=== PATIENT | female | born 1940 | race Caucasian/White ===

== ENCOUNTER 2016-10-23 11:55 | Inpatient (IN) | payer OTHER ==
[2016-10-29] MEDS ORDERED: BISACODYL 10 MG SUPP PR PRN (15:31)
--- NOTE | 2016-10-29 16:41 | PDOREHIP ---
Admission [facility] - Admission - 3 Day Assessment Period Admission Date/Day 1: 10/29/16 Day 2: 10/30/16 Day 3: 10/31/16 - Active Diagnoses Comorbidities and Co-existing Conditions at Admission: 74610. None of the Above - Skin Conditions Unhealed Pressure Ulcer (1 or more/Stage 1 or >)-Admission: 0. No
[2016-10-29] MEDS: WARFARIN SODIUM 5 MG TAB PO SCH (17:32)
[2016-10-29] MEDS: MIDODRINE HCL 5 MG TAB PO SCH ×2 (17:32→20:49)
--- NOTE | 2016-10-29 17:44 | GHP ---
[f rep st] HISTORY AND PHYSICAL POST ADMISSION PHYSICIAN EVALUATION AND REHABILITATION TREATMENT PLAN DATE OF ADMISSION: 10/29/2016 DATE OF EVALUATION: 10/29/2016 TIME OF EVALUATION: 1340 REFERRING FACILITY: [facility]. IMPAIRMENT GROUP: 14.1. DATE OF ONSET: 10/16/2014. REFERRING PHYSICIAN: Dr. Yen. CONSULTING PHYSICIAN: Dr. Humphrey with neurosurgery. REHABILITATION DIAGNOSIS: Partial paraplegia at C6, status post lumbar decompression and fusion surgery. 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 DATE OF SURGERY: 10/16/2014 HISTORY OF PRESENT ILLNESS: The patient had a fall at home and lost strength to her arms and legs. She was taken initially to [facility] and subsequently transferred to [facility], where she was found to have a cervical spine injury with myelopathy and quadriparesis. Spinal MRI on showed severe cord compression C5-C6 due to a disc bulge and ligamentum flavum infolding, as well as spinal cord edema and swelling from C3- C7. She also had moderate spinal stenosis at C6-C7. She underwent surgery on 10/16/2014 with a C5-C6 laminectomy and a C5-7 posterior fusion. Her hospital course was complicated by delirium for which she was treated with Zyprexa briefly and by hypotension. She was initially treated with a phenylephrine infusion to maintain mean arterial pressure greater than 90. She had some improvement in her strength, particularly in the upper extremities. It took some time for her to be converted to oral pressors and off of the phenylephrine infusion. Finally this was accomplished with midodrine, fludrocortisone and droxidopa. Additionally, she was treated with an abdominal binder and compression stockings. A Calero catheter was inserted for immobility and urinary incontinence. She had constipation and likely neurogenic bowel and was treated with laxatives which have resulted in soft stool and fecal incontinence. Other imaging in the hospital: A head CT was done without intracranial abnormality other than mild diffuse cerebral volume loss and mild periventricular and subcortical white matter hypodensities consistent with small vessel ischemic disease. MRI of the thoracic spine showed a chronic L1 superior endplate compression fracture and anterior wedge deformity with 30% loss of anterior vertebral body height. MRI of the lumbar spine showed multilevel degenerative disc disease and facet arthropathy greatest at L4-L5 with severe spinal canal stenosis, as well as moderate spinal canal stenosis at L3-L4 and a chronic anterior wedge compression deformity of L1. She had grade 1 anterolisthesis of L4 on L5 without spondylolysis. She has history of paroxysmal atrial fibrillation for which she was on warfarin. Warfarin was restarted on 10/23/2016. She was stabilized and ready for discharge to inpatient rehabilitation. LABORATORY STUDIES: On the day of discharge, her INR was 1.95 and her hemoglobin and hematocrit were 11 and 36. On 10/27/2014, a basic metabolic panel was entirely within normal limits and the CBC showed slight anemia with a hemoglobin 11.1 and hematocrit of 34.8, platelet count was normal at 4.39. White blood cell count was normal at 6.71. Comprehensive metabolic panel on and 10/19 showed a slightly low albumin at 2.4 and then 2.2. Otherwise, liver functions were within normal limits. She had normal magnesium and phosphorus on 10/27/2016. INR on 10/26 was 1.11, on 10/27 was 1.31, on 10/28 was 1.6. PRECAUTIONS: She is a fall risk. She has orthopedic precautions at the cervical spine. ACTIVE COMORBIDITIES: She has the tier 3 comorbidity of partial C6 paraplegia. PAST MEDICAL HISTORY: 1. Pulmonary emboli which happened in conjunction with a pacemaker placement. 2. Complete AV block. 3. Anxiety and depression. 4. Syncope. 5. Paroxysmal atrial fibrillation. 6. Chronic hypoxemic respiratory failure, using 1.5 L of oxygen overnight. 7. Osteoporosis. 8. Sinus infections. 9. Generalized anxiety disorder and major depression. 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 11. Osteoarthritis. 12. Tricuspid regurgitation. 13. Diastolic dysfunction. 14. Diverticulosis. PAST SURGICAL HISTORY: She had a pacemaker placement on 04/26/2016. PREHOSPITAL MEDICATIONS: I do not have a list. ADMISSION MEDICATIONS: 1. Acetaminophen 650 mg p.o. q.6 hours p.r.n. 2. Cholecalciferol 1000 units p.o. daily. 3. Fludrocortisone 0.1 mg p.o. daily. 4. Fluoxetine 20 mg p.o. daily. 5. Gabapentin 400 mg p.o. q.8 hours. 6. Midodrine 5 mg p.o. three times daily. 7. Lactobacillus supplement three times daily with meals. 8. Vitamin B complex 1000 mcg p.o. daily. 9. Warfarin 5 mg p.o. on Wednesday, Wednesday, and Wednesday and 2.5 mg p.o. on Wednesday, Wednesday, and Wednesday. 10. Droxidopa 300 mg po three times daily ALLERGIES: Listed to amoxicillin and to carrots. FAMILY HISTORY: Noncontributory. PSYCHOSOCIAL HISTORY: She is . She lives with her . She has a history of smoking but she quit at age 32. REVIEW OF SYSTEMS: She reports a return of sensation in her arms and legs, and some movement beginning in the legs. She has good movement at the elbows and shoulders but difficulty with movement at the wrists and fingers. She has had fecal incontinence. She reports that she has sensation: she knows when she is incontinent of feces and she has a feeling of full bladder even though there is a Calero catheter in place. She denies cough or dyspnea. She denies chest pain or palpitations. She denies fevers or chills. She denies abdominal pain. She denies difficulty swallowing. She denies joint pain or joint swelling. She denies skin rash or skin breakdown. She denies recent weight gain or weight loss prior to her accident. Otherwise a 10-point review of systems is negative. PHYSICAL EXAMINATION: VITAL SIGNS: Blood pressure is 162/108. Heart rate is 84, respiratory rate is 17 oxygen saturation is 96% on room air. Temperature is 36.5 degrees centigrade. Her weight is 64.5 kg. Her body mass index of 26.7. GENERAL: This is an overweight woman lying in bed, wearing a cervical collar, alert, cooperative and in no acute distress. HEENT: Extraocular movements are intact. Pupils are equal, round, and reactive to light. Mucous membranes are moist. Dentition is in good condition. There is no posterior oropharyngeal mucus. NECK: Supple. There is a well-approximated surgical scar on the posterior neck with minimal eschar along the incision. No dehiscence and no drainage. There are no sutures or jeison visible. HEART: There is a regular rate and rhythm with no murmurs, rubs, or gallops. LUNGS: Clear to auscultation bilaterally. ABDOMEN: Soft, nontender, nondistended with normoactive bowel sounds and no hepatosplenomegaly. EXTREMITIES: There is no cyanosis, clubbing, or edema. Radial pulses are 2+ bilaterally. Dorsalis pedis pulses are 1+ bilaterally. NEUROLOGIC: She is alert and oriented x3. Cranial nerves 2-12 are grossly intact. Motor strength is 3 to 4 over 5 bilaterally at the shoulders and elbows, and she lacks antigravity movement at the wrists or fingers. She also lacks volitional hand sponsorship coordinator. In the lower extremities, she has movement at the hip flexors, and internal and external rotation of the hips. On the left side, she has 1/5 strength at the quadriceps, 0/5 strength at the hamstrings, 2 to 3 over 5 strength at the extensor hallucis longus with plantar flexion. On the right side, she has 3/5 strength at the quadriceps and similarly 2/5 strength for foot dorsiflexion, plantar flexion, and extensor hallucis longus. Sensation is intact to light touch in all limbs. Deep tendon reflexes are 2+ bilaterally at the biceps, patella and Achilles tendons. SKIN: There are no decubitus ulcers and no rash. CURRENT LEVEL OF FUNCTION: Per the preadmission screen: Regarding diet, feeding, and swallowing, she was on a regular diet, requiring setup and minimal assistance. For grooming, she required minimal assistance. For bathing, she needed assistance. For dressing, she needed assistance. Regarding toileting. She was noted to have a Calero catheter. Bed mobility required maximal assistance of two. On today's exam, she required maximal assistance of one. Transfers required maximal assistance of two, and a Shyann lift was being used for transfers. Balance was poor. Endurance was poor. She was in a tilt-in- space wheelchair three times a day. Regarding cognition, she was noted to be alert, oriented and to follow complex commands. IMPRESSION: The patient is a 76-year-old woman who had preexisting cervical spinal disease, suffered a fall and had acute myelopathy resulting in C6 quadriparesis, RISHI class B. She had emergent surgery with a C5-6 laminectomy and a C5-7 fusion on 10/16/2016. Hospital course was complicated by delirium and hypotension. For delirium, she was initially treated with olanzapine but the delirium subsequently cleared. Regarding hypotension, she required a phenylephrine infusion but subsequently was able to maintain adequate blood pressure with mean arterial pressure greater than 65 with a combination of midodrine at 5 mg three times daily, droxidopa at 300 mg three times daily and Florinef 0.1 mg daily. She has subsequently had improvement and is beginning to have sensation, as well as some movement, in the lower extremities and is currently RISHI class C. She has fecal and urinary incontinence and may have neurogenic bowel and bladder. She needs to wear her hard cervical collar whenever she is out of bed for approximately 6 weeks until followup with Neurosurgery. She is appropriate for inpatient rehabilitation where she will benefit from physical and occupational therapy to optimize her mobility and activities of daily living, nursing care regarding fall risk, bowel and bladder with neurogenic bowel and bladder protocol, blood pressure management with abdominal binder and BING hose or Garland wraps to maintain mean arterial pressure greater than 65, and for medication administration and medication education and for skin integrity. She will benefit from the care of a physician regarding medications to maintain adequate blood pressure, cardiorespiratory status and anticoagulation. Her goal is to return home with her family. For a safe discharge, it is expected she will achieve contact guard to minimal assistance with mobility, ADLs and cognition, that she and her will be able to provide medication and management, and they will need medication education. There will need spinal cord injury education as well. She will have therapy with physical therapy and occupational therapy on a modified schedule for 60-90 minutes per day for each discipline on 5-7 days of the week. Her expected duration of stay is 3-4 weeks. It is expected that, upon discharge, she will continue to benefit from home health services, including occupational therapy and physical therapy, as well as a spinal cord injury support group. ASSESSMENT AND PLAN: 1. Cervical spinal stenosis and myelopathy status post C5-6 laminectomy and C5- C7 posterior fusion on 10/16/16 with partial hemiplegia at the C6 level, RISHI class C. Hard cervical collar when out of bed. Can remove collar to shower. Physical and occupational therapy to optimize her mobility and activities of daily living. It is encouraging that she has had return of sensation and movement in the upper and lower extremities and this may continue to improve as edema from the injury and postsurgical changes resolve. 2. Possible neurogenic bowel and bladder. She will be treated with neurogenic bowel protocol. She will be assessed for readiness to remove Calero catheter. Calero will be continued initially to prevent skin risk if she is incontinent of urine. 3. Hypotension, related to spinal cord injury. This may be resolving with her high blood pressure upon admission today. Droxidopa is not available at [facility] at present. Her blood pressure will be monitored. Midodrine and fludrocortisone will be continued. Midodrine can be titrated from 5-10 mg three times daily should she have a low blood pressure and, if necessary , an outside pharmacy can be used to obtain the droxidopa. Additionally she will have abdominal binder and thigh-high BING hose. If her mean arterial pressure drops below 65, the BING hose can be replaced with Garland wraps. 4. Paroxysmal atrial fibrillation. She is on warfarin. Her INR is almost therapeutic. We will repeat the INR in the morning and continue her current warfarin dosing. 5. History of complete atrioventricular block, status post pacemaker placement. She will be monitored. 6. History of anxiety and depression. Continue fluoxetine. 7. Osteoporosis. She is on vitamin D supplementation. Check a vitamin D level If she needs more supplementation, her dose will be increased. 8. Wound care. Her incision appears to be closed likely with dissolvable subcuticular sutures, and possibly skin glue. She can shower. 9. History of pulmonary emboli. Continue warfarin and oxygen as needed. 10. Hypoxemia. Per her report, she did not use oxygen during the day prior to her hospitalization. She will have incentive spirometry and continue with monitoring of oxygenation. It is hoped that she can be liberated from oxygen at least during the day during her stay. 11. Prophylaxis warfarin will be adequate for deep venous thrombosis prophylaxis. She is at high risk with her paraparesis. There is no indication for gastrointestinal prophylaxis. 12. Pain management appears to be adequate with acetaminophen and gabapentin, and these will be continued. /[id number]/MODL MTDD
[2016-10-29] MEDS ORDERED: DROXIDOPA 300 MG PO SCH ×2 (18:00)
[2016-10-29] MEDS: GABAPENTIN 400 MG CAP PO SCH (20:49)
[2016-10-29] MEDS: ACETAMINOPHEN 325 MG TAB PO PRN (20:50)
[2016-10-29] MEDS ORDERED: GABAPENTIN 400 MG PO SCH (22:00)
[2016-10-30] MEDS: GABAPENTIN 400 MG CAP PO SCH ×3 (06:21→21:20)
[2016-10-30] MEDS: ACETAMINOPHEN 325 MG TAB PO PRN ×3 (06:24→21:20)
[2016-10-30 07:57] LABS: INR 2.2 (0.83-1.16); PROTIME(PATIENT) 24.6 SEC (12.0-15.0)
[2016-10-30] MEDS ORDERED: Herbals/Supplements -Info Only PO SCH (09:00)
[2016-10-30] MEDS ORDERED: MIDODRINE HCL 5 MG TAB PO SCH ×2 (09:07→09:30)
[2016-10-30] MEDS: FLUDROCORTISONE ACETATE 0.1 MG TAB PO SCH (09:16)
[2016-10-30] MEDS: FLUoxetine 20 MG CAP PO SCH (09:16)
[2016-10-30] MEDS: CYANO/VITAMIN B12 1000 MCG TAB PO SCH (09:17)
[2016-10-30] MEDS: CHOLECALCIFEROL VIT D3 1,000 UNITS TAB PO SCH (09:17)
[2016-10-30] MEDS: MIDODRINE HCL 5 MG TAB PO SCH ×3 (09:22→16:54)
--- NOTE | 2016-10-30 09:31 | SOAPPROG ---
SOAP Progress Note Assessment/Plan: Assessment: 76 o F with pre-existing cervical spine DJD who suffered a fall on 10/16/16 with cervical spinal cord injury and underwent emergent cervical laminectomy C5 to C6 and posterior fusion C5 - C7 and presents with incomplete paraplegia at the C6 level, RISHI class C: * Partial hemiplegia at the C6 level, RISHI class C. Physical and occupational therapy to optimize her mobility and activities of daily living. It is encouraging that she has had return of sensation and movement in the upper and lower extremities and this may continue to improve as edema from the injury and postsurgical changes resolve. * Status post C5-6 laminectomy and C5-C7 posterior fusion on 10/16/16. Hard cervical collar when out of bed. Can remove collar to shower. * Possible neurogenic bowel and bladder. She will be treated with neurogenic bowel protocol. She will be assessed for readiness to remove Calero catheter. Calero will be continued initially to prevent skin risk if she is incontinent of urine. * Hypotension, related to spinal cord injury. Had high blood pressure upon admission 10/29/16, but low BP this AM prior to medications. Droxidopa is not available at [facility] at present. Midodrine and fludrocortisone will be continued. Increase midodrine c from 5 to 10 mg three times daily starting 10/30/16 and administer first dose 30 min before arising in AM. If necessary, an outside pharmacy can be used to obtain the droxidopa. Additionally she will have abdominal binder and thigh-high BING hose. If her mean arterial pressure drops below 65, the BING hose can be replaced with Garland wraps. * Paroxysmal atrial fibrillation. She is on warfarin. Her INR is therapeutic at 2.2 today 10/30/16. Repeat the INR 11/02/16. Continue current warfarin dosing. * History of complete atrioventricular block, status post pacemaker placement. She will be monitored. * History of anxiety and depression. Continue fluoxetine. * Osteoporosis. She is on vitamin D supplementation. Check a vitamin D level . * Wound care. Her incision appears to be closed likely with dissolvable subcuticular sutures, and possibly skin glue. She can shower. * History of pulmonary emboli. Continue warfarin and oxygen as needed. * Hypoxemia. Per her report, she did not use oxygen during the day prior to her hospitalization. She will have incentive spirometry and continue with monitoring of oxygenation. It is hoped that she can be liberated from oxygen at least during the day during her stay. * Prophylaxis warfarin will be adequate for deep venous thrombosis prophylaxis. She is at high risk with her paraparesis. There is no indication for gastrointestinal prophylaxis. * Pain management appears to be adequate with acetaminophen and gabapentin, and these will be continued. 10/30/16 10:04 Subjective: Had episode this morning of altered LOC and inability to speak. She was up in 3 -way tilt wheelchair at the dining table for breakfast. She had notyet received midodrine. She felt better when she was brought back to supine. BP was 70s systolic. Objective: Vital Signs Temp Pulse Resp BP Pulse Ox 36.9 C 59 L 16 107/78 93 10/30/16 08:00 10/30/16 08:00 10/30/16 08:00 10/30/16 08:00 10/30/16 08:00 10/29/16 10/30/16 10/31/16 05:59 05:59 05:59 Intake Total 950 100 Output Total 1450 Balance -500 100 PT 24.6 SEC (12.0-15.0) H 10/30/16 06:00 INR 2.20 (0.83-1.16) H 10/30/16 06:00 Physical Exam - Physical Exam General Appearance: WD/WN, alert, no apparent distress Respiratory: normal breath sounds, No crackles, No rhonchi, No wheezing Cardiac/Chest: regular rate, rhythm, No edema Skin: normal color, warm/dry Neuro/Psych: alert, normal mood/affect, oriented x 3, motor weakness ICD10 Worksheet Patient Problems: Problems Problem Status Onset Cervical cord compression with myelopathy Acute S/P laminectomy Acute
[2016-10-30] MEDS ORDERED: WARFARIN SODIUM 2.5 MG TAB PO ONE (16:00)
[2016-10-30] MEDS: WARFARIN SODIUM 2.5 MG TAB PO SCH (16:54)
[2016-10-31] MEDS: GABAPENTIN 400 MG CAP PO SCH ×3 (05:52→20:29)
[2016-10-31] MEDS: ACETAMINOPHEN 325 MG TAB PO PRN ×2 (05:52→17:43)
--- NOTE | 2016-10-31 07:20 | SOAPPROG ---
SOAP Progress Note Assessment/Plan: 76 o F with pre-existing cervical spine DJD who suffered a fall on 10/16/16 with cervical spinal cord injury and underwent emergent cervical laminectomy C5 to C6 and posterior fusion C5 - C7 and presents with incomplete paraplegia at the C6 level, RISHI class C: * Partial hemiplegia at the C6 level, RISHI class C. Physical and occupational therapy to optimize her mobility and activities of daily living. It is encouraging that she has had return of sensation and movement in the upper and lower extremities and this may continue to improve as edema from the injury and postsurgical changes resolve. * Status post C5-6 laminectomy and C5-C7 posterior fusion on 10/16/16. Hard cervical collar when out of bed. Can remove collar to shower. * Possible neurogenic bowel and bladder. She will be treated with neurogenic bowel protocol. She will be assessed for readiness to remove Calero catheter. Calero will be continued initially to prevent skin risk if she is incontinent of urine. * Hypotension, related to spinal cord injury. Had high blood pressure upon admission 10/29/16, but low BP this AM prior to medications. Droxidopa is not available at [facility] at present. Midodrine and fludrocortisone will be continued. Increase midodrine c from 5 to 10 mg three times daily starting 10/30/16 and administer first dose 30 min before arising in AM. If necessary, an outside pharmacy can be used to obtain the droxidopa. Additionally she will have abdominal binder and thigh-high BING hose. If her mean arterial pressure drops below 65, the BING hose can be replaced with Garland wraps. * Paroxysmal atrial fibrillation. She is on warfarin. Her INR is therapeutic at 2.2 today 10/30/16. Repeat the INR 11/02/16. Continue current warfarin dosing. * History of complete atrioventricular block, status post pacemaker placement. She will be monitored. * History of anxiety and depression. Continue fluoxetine. * Osteoporosis. She is on vitamin D supplementation. Vitamin D level pending . * Wound care. Her incision appears to be closed likely with dissolvable subcuticular sutures, and possibly skin glue. She can shower. * History of pulmonary emboli. Continue warfarin and oxygen as needed. * Hypoxemia. Per her report, she did not use oxygen during the day prior to her hospitalization. She will have incentive spirometry and continue with monitoring of oxygenation. It is hoped that she can be liberated from oxygen at least during the day during her stay. * Prophylaxis warfarin will be adequate for deep venous thrombosis prophylaxis. She is at high risk with her paraparesis. There is no indication for gastrointestinal prophylaxis. * Pain management appears to be adequate with acetaminophen and gabapentin, and these will be continued. Subjective: No events. No complaints this a.m. Concerned about the hypotension but no symptoms this morning. Denies pain or JACOB. Objective: Vital Signs Temp Pulse Resp BP Pulse Ox 36.9 C 60 15 123/57 H 93 10/31/16 05:48 10/31/16 05:48 10/31/16 05:48 10/31/16 05:48 10/31/16 05:48 10/30/16 10/31/16 11/01/16 05:59 05:59 05:59 Intake Total 950 550 Output Total 1450 2250 Balance -500 -1700 PT 24.6 SEC (12.0-15.0) H 10/30/16 06:00 INR 2.20 (0.83-1.16) H 10/30/16 06:00 - Pending Discharge Pending Discharge Within 24 Hours: No Pending Discharge Within 48 Hours: No Physical Exam - Physical Exam General Appearance: alert, no apparent distress EENT: other (collar in place) Respiratory: chest non-tender, lungs clear Cardiac/Chest: irregularly irregular Abdomen: normal bowel sounds, non-tender, soft Extremities: non-tender Neuro/Psych: alert, normal mood/affect, oriented x 3, motor weakness (R>L kade) , No speech abnormalities ICD10 Worksheet Patient Problems: Problems Problem Status Onset Cervical cord compression with myelopathy Acute S/P laminectomy Acute
[2016-10-31] MEDS: MIDODRINE HCL 5 MG TAB PO SCH ×3 (07:24→15:45)
[2016-10-31] MEDS: CHOLECALCIFEROL VIT D3 1,000 UNITS TAB PO SCH (08:42)
[2016-10-31] MEDS: CYANO/VITAMIN B12 1000 MCG TAB PO SCH (08:42)
[2016-10-31] MEDS: FLUoxetine 20 MG CAP PO SCH (08:44)
[2016-10-31] MEDS: FLUDROCORTISONE ACETATE 0.1 MG TAB PO SCH (08:44)
[2016-10-31] MEDS: WARFARIN SODIUM 5 MG TAB PO SCH (15:45)
[2016-10-31] MEDS ORDERED: ALTEPLASE 2 MG VIAL IVP PRN (16:21)
[2016-11-01] MEDS: GABAPENTIN 400 MG CAP PO SCH ×3 (06:03→22:32)
[2016-11-01] MEDS: ACETAMINOPHEN 325 MG TAB PO PRN ×3 (06:06→19:56)
[2016-11-01] MEDS: MIDODRINE HCL 5 MG TAB PO SCH ×3 (07:29→17:09)
--- NOTE | 2016-11-01 07:41 | SOAPPROG ---
SOAP Progress Note Assessment/Plan: 76 o F with pre-existing cervical spine DJD who suffered a fall on 10/16/16 with cervical spinal cord injury and underwent emergent cervical laminectomy C5 to C6 and posterior fusion C5 - C7 and presents with incomplete paraplegia at the C6 level, RISHI class C: * Partial hemiplegia at the C6 level, RISHI class C. Physical and occupational therapy to optimize her mobility and activities of daily living. It is encouraging that she has had return of sensation and movement in the upper and lower extremities and this may continue to improve as edema from the injury and postsurgical changes resolve. * Status post C5-6 laminectomy and C5-C7 posterior fusion on 10/16/16. Hard cervical collar when out of bed. Can remove collar to shower. * Possible neurogenic bowel and bladder. She will be treated with neurogenic bowel protocol. She will be assessed for readiness to remove Calero catheter. Calero will be continued initially to prevent skin risk if she is incontinent of urine. * Hypotension, related to spinal cord injury. Had high blood pressure upon admission 10/29/16, but low BP this AM prior to medications. Droxidopa is not available at [facility] at present. Midodrine and fludrocortisone will be continued. Increase midodrine c from 5 to 10 mg three times daily starting 10/30/16 and administer first dose 30 min before arising in AM. If necessary, an outside pharmacy can be used to obtain the droxidopa. Additionally she will have abdominal binder and thigh-high BING hose. If her mean arterial pressure drops below 65, the BING hose can be replaced with Garland wraps. Vacillating pressures with diastolic >110 yesterday, adding parameters for midodrine dosing, will hold for systolic >140 and diastolic >90 out of binder * Paroxysmal atrial fibrillation. She is on warfarin. Her INR is therapeutic at 2.2 today 10/30/16. Repeat the INR 11/02/16. Continue current warfarin dosing. * History of complete atrioventricular block, status post pacemaker placement. She will be monitored. * History of anxiety and depression. Continue fluoxetine. * Osteoporosis. She is on vitamin D supplementation. Vitamin D level pending . * Wound care. Her incision appears to be closed likely with dissolvable subcuticular sutures, and possibly skin glue. She can shower. * History of pulmonary emboli. Continue warfarin and oxygen as needed. * Hypoxemia. Per her report, she did not use oxygen during the day prior to her hospitalization. She will have incentive spirometry and continue with monitoring of oxygenation. It is hoped that she can be liberated from oxygen at least during the day during her stay. * Prophylaxis warfarin will be adequate for deep venous thrombosis prophylaxis. She is at high risk with her paraparesis. There is no indication for gastrointestinal prophylaxis. * Pain management appears to be adequate with acetaminophen and gabapentin, and these will be continued. Objective: Vital Signs Temp Pulse Resp BP Pulse Ox 37.2 C 60 16 119/63 93 11/01/16 06:24 11/01/16 06:24 11/01/16 06:24 11/01/16 06:24 11/01/16 06:24 10/31/16 11/01/16 11/02/16 05:59 05:59 05:59 Intake Total 550 854 Output Total 2250 1275 Balance -1700 -421 PT 24.6 SEC (12.0-15.0) H 10/30/16 06:00 INR 2.20 (0.83-1.16) H 10/30/16 06:00 - Pending Discharge Pending Discharge Within 24 Hours: No Pending Discharge Within 48 Hours: No Physical Exam - Physical Exam General Appearance: alert, no apparent distress Neck: other (aspen in place) Respiratory: lungs clear, normal breath sounds Cardiac/Chest: regular rate, rhythm Abdomen: non-tender, soft Skin: warm/dry Extremities: No pedal edema Neuro/Psych: alert, normal mood/affect, oriented x 3, motor weakness (Right > left paresis) ICD10 Worksheet Patient Problems: Problems Problem Status Onset Cervical cord compression with myelopathy Acute S/P laminectomy Acute
[2016-11-01] MEDS: FLUDROCORTISONE ACETATE 0.1 MG TAB PO SCH ×2 (09:01→10:29)
[2016-11-01] MEDS: CHOLECALCIFEROL VIT D3 1,000 UNITS TAB PO SCH (09:02)
[2016-11-01] MEDS: FLUoxetine 20 MG CAP PO SCH (09:02)
[2016-11-01] MEDS: CYANO/VITAMIN B12 1000 MCG TAB PO SCH (09:02)
[2016-11-01] MEDS: WARFARIN SODIUM 5 MG TAB PO SCH (17:07)
[2016-11-02] MEDS: ACETAMINOPHEN 325 MG TAB PO PRN ×2 (06:19→19:44)
[2016-11-02] MEDS: GABAPENTIN 400 MG CAP PO SCH ×3 (06:19→20:32)
[2016-11-02] MEDS: MIDODRINE HCL 5 MG TAB PO SCH ×3 (07:03→16:23)
[2016-11-02 07:06] LABS: INR 2.44 (0.83-1.16); PROTIME(PATIENT) 26.7 SEC (12.0-15.0)
[2016-11-02] MEDS: CHOLECALCIFEROL VIT D3 1,000 UNITS TAB PO SCH (09:17)
[2016-11-02] MEDS: FLUoxetine 20 MG CAP PO SCH (09:17)
[2016-11-02] MEDS: CYANO/VITAMIN B12 1000 MCG TAB PO SCH (09:17)
[2016-11-02] MEDS: FLUDROCORTISONE ACETATE 0.1 MG TAB PO SCH (09:18)
--- NOTE | 2016-11-02 15:33 | SOAPPROG ---
SOAP Progress Note Assessment/Plan: 76 o F with pre-existing cervical spine DJD who suffered a fall on 10/16/16 with cervical spinal cord injury and underwent emergent cervical laminectomy C5 to C6 and posterior fusion C5 - C7 and presents with incomplete paraplegia at the C6 level, RISHI class C: * Partial hemiplegia at the C6 level, RISHI class C. Physical and occupational therapy to optimize her mobility and activities of daily living. It is encouraging that she has had return of sensation and movement in the upper and lower extremities and this may continue to improve as edema from the injury and postsurgical changes resolve. * Status post C5-6 laminectomy and C5-C7 posterior fusion on 10/16/16. Hard cervical collar when out of bed. Can remove collar to shower. * Possible neurogenic bowel and bladder. She will be treated with neurogenic bowel protocol. She will be assessed for readiness to remove Calero catheter. Calero will be continued initially to prevent skin risk if she is incontinent of urine. * Hypotension, related to spinal cord injury. Had high blood pressure upon admission 10/29/16, but low BP this AM prior to medications. Droxidopa is not available at [facility] at present. Midodrine and fludrocortisone will be continued. Increase midodrine c from 5 to 10 mg three times daily starting 10/30/16 and administer first dose 30 min before arising in AM. If necessary, an outside pharmacy can be used to obtain the droxidopa. Additionally she will have abdominal binder and thigh-high BING hose. If her mean arterial pressure drops below 65, the BING hose can be replaced with Garland wraps. Vacillating pressures with intermittent hypo/hypertension, adding parameters for midodrine dosing, will hold for systolic >140 and diastolic >90 out of binder * Paroxysmal atrial fibrillation. She is on warfarin. Her INR is therapeutic at 2.2 today 10/30/16. Repeat the INR 11/02/16. Continue current warfarin dosing. * History of complete atrioventricular block, status post pacemaker placement. She will be monitored. * History of anxiety and depression. Continue fluoxetine. * Osteoporosis. She is on vitamin D supplementation. Vitamin D level borderline at 33, will increase daily dosing to 2,000iu with recheck as outpt * Wound care. Her incision appears to be closed likely with dissolvable subcuticular sutures, and possibly skin glue. She can shower. * History of pulmonary emboli. Continue warfarin and oxygen as needed. * Hypoxemia. Per her report, she did not use oxygen during the day prior to her hospitalization. She will have incentive spirometry and continue with monitoring of oxygenation. It is hoped that she can be liberated from oxygen at least during the day during her stay. * Prophylaxis warfarin will be adequate for deep venous thrombosis prophylaxis. She is at high risk with her paraparesis. There is no indication for gastrointestinal prophylaxis. * Pain management appears to be adequate with acetaminophen and gabapentin, and these will be continued. 11/02/16 15:33 Subjective: Ongoing labile BPs but imrpoving overall with tolerance of full tilt table to ~ 80 degrees today. Denies pain or lightheadedness. Objective: Vital Signs Temp Pulse Resp BP Pulse Ox 37.6 C 59 L 15 121/80 H 93 11/02/16 06:16 11/02/16 12:19 11/02/16 06:16 11/02/16 12:19 11/02/16 12:18 11/01/16 11/02/16 11/03/16 05:59 05:59 05:59 Intake Total 854 1738 550 Output Total 1275 1750 550 Balance -421 -12 0 PT 26.7 SEC (12.0-15.0) H 11/02/16 06:05 INR 2.44 (0.83-1.16) H 11/02/16 06:05 - Pending Discharge Pending Discharge Within 24 Hours: No Pending Discharge Within 48 Hours: No Physical Exam - Physical Exam General Appearance: alert, no apparent distress Neck: other (+aspen) Respiratory: lungs clear, normal breath sounds Cardiac/Chest: regular rate, rhythm Abdomen: non-tender, soft Skin: other (Picc site c/d/i) Neuro/Psych: alert, normal mood/affect, oriented x 3, motor weakness (improving right C6 myotome), No abnormal cisco administrator II-XII ICD10 Worksheet Patient Problems: Problems Problem Status Onset Cervical cord compression with myelopathy Acute S/P laminectomy Acute
[2016-11-02] MEDS: WARFARIN SODIUM 2.5 MG TAB PO SCH (16:23)
[2016-11-03] MEDS: GABAPENTIN 400 MG CAP PO SCH ×3 (05:34→21:12)
[2016-11-03] MEDS: MIDODRINE HCL 5 MG TAB PO SCH ×3 (05:34→16:29)
[2016-11-03] MEDS: CHOLECALCIFEROL VIT D3 1,000 UNITS TAB PO SCH (08:55)
[2016-11-03] MEDS: FLUDROCORTISONE ACETATE 0.1 MG TAB PO SCH (08:55)
[2016-11-03] MEDS: CYANO/VITAMIN B12 1000 MCG TAB PO SCH (08:55)
[2016-11-03] MEDS: FLUoxetine 20 MG CAP PO SCH (08:55)
--- NOTE | 2016-11-03 10:34 | SOAPPROG ---
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 Physical and occupational therapy to optimize her mobility and activities of daily living. It is encouraging that she has had return of sensation and movement in the upper and lower extremities and this may continue to improve as edema from the injury and postsurgical changes resolve. Initial FIM 55. Planning to transition from cardiac chair to tilt chair. Max a to seated and can maintain balance for brief periods. Dressing max A upper, total A lower body. 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 Will likely need power wheelchair. * Status post C5-6 laminectomy and C5-C7 posterior fusion on 10/16/16. Hard cervical collar when out of bed. Can remove collar to shower. * Possible neurogenic bowel and bladder. She will be treated with neurogenic bowel protocol. Schedule bisacodyl suppository for 1600 daily. She will be assessed for readiness to remove Calero catheter. Calero will be continued initially to prevent skin risk if she is incontinent of urine. * Hypotension, related to spinal cord injury. Improving, w/out hypotension, though droxidopa was not continued upon admission from acute hospital. Continue midodrine and fludrocortisone; increased midodrine c from 5 to 10 mg three times daily starting 10/30/16 and administer first dose 30 min before arising in AM. Continue abdominal binder and thigh-high BING hose. If her mean arterial pressure drops below 65, the BING hose can be replaced with Garland wraps. * Paroxysmal atrial fibrillation. She is on warfarin. Her INR is stable at 2.2 today 10/30/16 and 2.44 on 11/02/16. Continue current warfarin dosing. Repeat INR 10/06/16. * History of complete atrioventricular block, status post pacemaker placement. She will be monitored. * History of anxiety and depression. Continue fluoxetine. * Osteoporosis. She is on vitamin D supplementation. Vitamin D level wnl . * Wound care. Her incision appears to be closed likely with dissolvable subcuticular sutures, and possibly skin glue. She can shower. * History of pulmonary emboli. Continue warfarin and oxygen as needed. * Hypoxemia. Per her report, she did not use oxygen during the day prior to her hospitalization. She will have incentive spirometry and continue with monitoring of oxygenation. It is hoped that she can be liberated from oxygen at least during the day during her stay. * Prophylaxis warfarin will be adequate for deep venous thrombosis prophylaxis. She is at high risk with her paraparesis. There is no indication for gastrointestinal prophylaxis. * Pain management appears to be adequate with acetaminophen and gabapentin, and these will be continued. Attended staffing, 15 min. D/W case mgmt, nursing, PT, OT, [employer] DEVELOPER, pharmacist. Lives with in [facility], 1 CAMILA from [facility]. Has a local son; dtr out of state. Expect 8 weeks LOS with discharge 12/29/16. 11/03/16 14:04 Subjective: Does not like being awakened at 0530. Notes some return of use of R hand; has been able to feed herself. She's aware of bowel movements but unable to stop them. Objective: Vital Signs Temp Pulse Resp BP Pulse Ox 37.0 C 60 16 128/72 H 94 11/03/16 06:22 11/03/16 06:22 11/03/16 06:22 11/03/16 06:22 11/03/16 06:22 11/02/16 11/03/16 11/04/16 05:59 05:59 05:59 Intake Total 1738 1025 Output Total 1750 1950 Balance -12 -925 PT 26.7 SEC (12.0-15.0) H 11/02/16 06:05 INR 2.44 (0.83-1.16) H 11/02/16 06:05 - Time Spent With Patient Time Spent With Patient: Greater than 35 minutes floor time today, including more than 50% of time in coordination of care during staffing meeting, and counseling patient. Physical Exam - Physical Exam General Appearance: WD/WN, alert, no apparent distress Respiratory: normal breath sounds, No crackles, No rhonchi, No wheezing Cardiac/Chest: regular rate, rhythm, No edema Abdomen: normal bowel sounds, non-tender, soft, No distended Neuro/Psych: alert, normal mood/affect, abnormal cerebellar tests, motor weakness ICD10 Worksheet Patient Problems: Problems Problem Status Onset Cervical cord compression with myelopathy Acute S/P laminectomy Acute
[2016-11-03] MEDS: BISACODYL 10 MG SUPP PR SCH (16:29)
[2016-11-03] MEDS: WARFARIN SODIUM 5 MG TAB PO SCH (16:30)
[2016-11-03] MEDS: ACETAMINOPHEN 325 MG TAB PO PRN (19:08)
[2016-11-04] MEDS: GABAPENTIN 400 MG CAP PO SCH ×3 (06:26→21:40)
[2016-11-04] MEDS: MIDODRINE HCL 5 MG TAB PO SCH ×3 (06:26→15:37)
[2016-11-04] MEDS: ACETAMINOPHEN 325 MG TAB PO PRN ×2 (06:37→15:20)
[2016-11-04] MEDS: FLUDROCORTISONE ACETATE 0.1 MG TAB PO SCH (08:56)
[2016-11-04] MEDS: CHOLECALCIFEROL VIT D3 1,000 UNITS TAB PO SCH (08:56)
[2016-11-04] MEDS: CYANO/VITAMIN B12 1000 MCG TAB PO SCH (08:56)
[2016-11-04] MEDS: FLUoxetine 20 MG CAP PO SCH (08:56)
--- NOTE | 2016-11-04 12:58 | SOAPPROG ---
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 Physical and occupational therapy to optimize her mobility and activities of daily living. It is encouraging that she has had return of sensation and movement in the upper and lower extremities and this may continue to improve as edema from the injury and postsurgical changes resolve. Initial FIM 55. Planning to transition from cardiac chair to tilt chair. Max a to seated and can maintain balance for brief periods. Dressing max A upper, total A lower body. Can eat with built-up utensils L hand; has [employer] cafeteria assistant R hand. Will likely need power wheelchair. * Status post C5-6 laminectomy and C5-C7 posterior fusion on 10/16/16. Hard cervical collar when out of bed. Can remove collar to shower. * Possible neurogenic bowel and bladder. She will be treated with neurogenic bowel protocol. Schedule bisacodyl suppository for 1600 daily. She will be assessed for readiness to remove Calero catheter. Calero will be continued initially to prevent skin risk if she is incontinent of urine. * Hypotension, related to spinal cord injury. Improving, w/out hypotension, though droxidopa was not continued upon admission from acute hospital. Continue midodrine and fludrocortisone; increased midodrine c from 5 to 10 mg three times daily starting 10/30/16 and administer first dose 30 min before arising in AM. Continue abdominal binder and thigh-high BING hose. If her mean arterial pressure drops below 65, the BING hose can be replaced with Garland wraps. * Paroxysmal atrial fibrillation. She is on warfarin. Her INR is stable at 2.2 today 10/30/16 and 2.44 on 11/02/16. Continue current warfarin dosing. Repeat INR 10/06/16. * Shoulder pain: requests massage therapy; consult ordered 11/04/16. * History of complete atrioventricular block, status post pacemaker placement. She will be monitored. * History of anxiety and depression. Continue fluoxetine. * Osteoporosis. She is on vitamin D supplementation. Vitamin D level wnl . * Wound care. Her incision appears to be closed likely with dissolvable subcuticular sutures, and possibly skin glue. She can shower. * History of pulmonary emboli. Continue warfarin and oxygen as needed. * Hypoxemia. Per her report, she did not use oxygen during the day prior to her hospitalization. She will have incentive spirometry and continue with monitoring of oxygenation. It is hoped that she can be liberated from oxygen at least during the day during her stay. * Prophylaxis warfarin will be adequate for deep venous thrombosis prophylaxis. She is at high risk with her paraparesis. There is no indication for gastrointestinal prophylaxis. * Pain management appears to be adequate with acetaminophen and gabapentin, and these will be continued. Lives with in [facility], 1 CAMILA from [facility]. Has a local son; dtr out of state. Expect 8 weeks LOS with discharge 12/29/16. 11/04/16 12:58 Subjective: Able to eat using fingers +/- utensils. Reports syrup on breakfast acted "like velcro" this morning. No cough/dyspnea, no O2 today. Objective: Vital Signs Temp Pulse Resp BP Pulse Ox 36.9 C 60 18 120/65 97 11/04/16 06:50 11/04/16 06:50 11/04/16 06:50 11/04/16 06:50 11/04/16 06:50 11/03/16 11/04/16 11/05/16 05:59 05:59 05:59 Intake Total 1025 1280 Output Total 1950 1700 Balance -925 -420 PT 26.7 SEC (12.0-15.0) H 11/02/16 06:05 INR 2.44 (0.83-1.16) H 11/02/16 06:05 Physical Exam - Physical Exam General Appearance: WD/WN, alert, no apparent distress Respiratory: No respiratory distress, No accessory muscle use Cardiac/Chest: regular rate, rhythm, No edema Skin: normal color, warm/dry Neuro/Psych: alert, normal mood/affect, oriented x 3, motor weakness ICD10 Worksheet Patient Problems: Problems Problem Status Onset Cervical cord compression with myelopathy Acute S/P laminectomy Acute
[2016-11-04] MEDS: WARFARIN SODIUM 2.5 MG TAB PO SCH (15:37)
[2016-11-04] MEDS: BISACODYL 10 MG SUPP PR SCH (15:45)
[2016-11-05] MEDS: MIDODRINE HCL 5 MG TAB PO SCH ×4 (06:45→17:03)
[2016-11-05] MEDS: GABAPENTIN 400 MG CAP PO SCH ×3 (06:51→21:20)
[2016-11-05] MEDS: ACETAMINOPHEN 325 MG TAB PO PRN ×2 (08:35→21:20)
[2016-11-05] MEDS: CHOLECALCIFEROL VIT D3 1,000 UNITS TAB PO SCH (08:35)
[2016-11-05] MEDS: FLUDROCORTISONE ACETATE 0.1 MG TAB PO SCH (08:35)
[2016-11-05] MEDS: CYANO/VITAMIN B12 1000 MCG TAB PO SCH (08:36)
[2016-11-05] MEDS: FLUoxetine 20 MG CAP PO SCH (08:36)
--- NOTE | 2016-11-05 10:16 | SOAPPROG ---
SOAP Progress Note Assessment/Plan: Assessment: 76 o F with pre-existing cervical spine DJD who suffered a fall on 10/16/16 with cervical spinal cord injury and underwent emergent cervical laminectomy C5 to C6 and posterior fusion C5 - C7 and presents with incomplete quadriplegia at the C6 level, RISHI class C: 11/05/2016- Patient is doing well, orthostatic hypotension greatly improved. Stable INR on warfarin, last checked on 11/02/2016. Continues with Calero catheter , may need this on discharge because of decreased hand function. Having regular bowel movements, responding well to suppositories. Patient is working on coping strategies, noticing mild improvements in her neurological function. Discussed broad strokes prognosis with social media sr strategy manager, Gely Fleming, for discharge planning. A total of 25 minutes was spent on the floor in the care of the patient, the majority which is spent in counseling and ordination of care regarding prognosis planning with social work. * Incomplete quadriplegia at the C6 level, RISHI class C. Physical and occupational therapy to optimize her mobility and activities of daily living. It is encouraging that she has had return of sensation and movement in the upper and lower extremities and this may continue to improve as edema from the injury and postsurgical changes resolve. Initial FIM 55. Planning to transition from cardiac chair to tilt chair. Max a to seated and can maintain balance for brief periods. Dressing max A upper, total A lower body. 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 Will likely need power wheelchair. * Status post C5-6 laminectomy and C5-C7 posterior fusion on 10/16/16. Hard cervical collar when out of bed. Can remove collar to shower. * Possible neurogenic bowel and bladder. She will be treated with neurogenic bowel protocol. Schedule bisacodyl suppository for 1600 daily. She will be assessed for readiness to remove Calero catheter. Calero will be continued initially to prevent skin risk if she is incontinent of urine. Given poor hand function, she may be best served with a Calero if she is unable to void. * Hypotension, related to spinal cord injury. Improving, w/out hypotension, though droxidopa was not continued upon admission from acute hospital. Continue midodrine and fludrocortisone; increased midodrine c from 5 to 10 mg three times daily starting 10/30/16 and administer first dose 30 min before arising in AM. Continue abdominal binder and thigh-high BING hose. If her mean arterial pressure drops below 65, the BING hose can be replaced with Garland wraps. * Paroxysmal atrial fibrillation. She is on warfarin. Her INR is stable at 2.2 today 10/30/16 and 2.44 on 11/02/16. Continue current warfarin dosing. Repeat INR 10/06/16. * Shoulder pain: requests massage therapy; consult ordered 11/04/16. * History of complete atrioventricular block, status post pacemaker placement. She will be monitored. * History of anxiety and depression. Continue fluoxetine. * Osteoporosis. She is on vitamin D supplementation. Vitamin D level wnl . * Wound care. Her incision appears to be closed likely with dissolvable subcuticular sutures, and possibly skin glue. She can shower. * History of pulmonary emboli. Continue warfarin and oxygen as needed. * Hypoxemia. Per her report, she did not use oxygen during the day prior to her hospitalization. She will have incentive spirometry and continue with monitoring of oxygenation. It is hoped that she can be liberated from oxygen at least during the day during her stay. * Prophylaxis warfarin will be adequate for deep venous thrombosis prophylaxis. She is at high risk with her paraparesis. There is no indication for gastrointestinal prophylaxis. * Pain management appears to be adequate with acetaminophen and gabapentin, and these will be continued. Lives with in [facility], 1 CAMILA from [facility]. Has a local son; dtr out of state. Expect 8 weeks LOS with discharge 12/29/16. 11/05/16 10:13 Subjective: CC: hypotension, coping No acute events overnight. Patient endorses significant improvement in symptoms of orthostatic hypotension, notes occasional lightheadedness but greatly improved. No bleeding, no new numbness, tingling, or weakness. 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 Otherwise, she knows her hand function is improving and she is able to eat slightly better , slightly faster. She she notes that she has had a hard time coping and adjusting to her new expectations for improvement. She continues to work with social work on this issue, open to counseling. Objective: Vital Signs Temp Pulse Resp BP Pulse Ox 37.4 C 60 16 119/59 L 94 11/05/16 06:42 11/05/16 06:42 11/05/16 06:42 11/05/16 06:42 11/05/16 06:42 11/04/16 11/05/16 11/06/16 05:59 05:59 05:59 Intake Total 1280 890 360 Output Total 1700 1250 Balance -420 -360 360 PT 26.7 SEC (12.0-15.0) H 11/02/16 06:05 INR 2.44 (0.83-1.16) H 11/02/16 06:05 Physical Exam - Physical Exam General Appearance: WD/WN ( is), alert, no apparent distress EENT: No scleral icterus (R), No scleral icterus (L) Respiratory: No respiratory distress, No accessory muscle use Cardiac/Chest: regular rate, rhythm, No edema Skin: normal color, warm/dry, No cyanosis Extremities: No pedal edema, No swelling Neuro/Psych: alert, normal mood/affect, other ( she has less than 3/5 strength in her left finger flexors, 4/5 in her left wrist [employer]. 4/5 in the left elbow flexor. On the right, she has no finger flexion, trace wrist extension. 4/ 5 biceps on the right. Also she has about 4/5 strength in the ankle dorsiflexion and EHL.) ICD10 Worksheet Patient Problems: Problems Problem Status Onset Cervical cord compression with myelopathy Acute S/P laminectomy Acute
[2016-11-05] MEDS: SENNOSIDES 1 TAB PO PRN (15:23)
[2016-11-05] MEDS: BISACODYL 10 MG SUPP PR SCH (15:23)
[2016-11-05] MEDS: WARFARIN SODIUM 5 MG TAB PO SCH (15:23)
[2016-11-06] MEDS: ACETAMINOPHEN 325 MG TAB PO PRN ×2 (06:35→13:20)
[2016-11-06] MEDS: MIDODRINE HCL 5 MG TAB PO SCH ×4 (06:35→22:00)
[2016-11-06] MEDS: GABAPENTIN 400 MG CAP PO SCH ×3 (06:36→22:00)
[2016-11-06 07:57] LABS: INR 2.61 (0.83-1.16); PROTIME(PATIENT) 28.2 SEC (12.0-15.0)
[2016-11-06] MEDS: CHOLECALCIFEROL VIT D3 1,000 UNITS TAB PO SCH (09:26)
[2016-11-06] MEDS: FLUDROCORTISONE ACETATE 0.1 MG TAB PO SCH (09:27)
[2016-11-06] MEDS: FLUoxetine 20 MG CAP PO SCH (09:27)
[2016-11-06] MEDS: SENNOSIDES 1 TAB PO PRN (09:27)
[2016-11-06] MEDS: CYANO/VITAMIN B12 1000 MCG TAB PO SCH (09:27)
--- NOTE | 2016-11-06 10:32 | SOAPPROG ---
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 Physical and occupational therapy to optimize her mobility and activities of daily living. Continues to have return of muscle function. Initial FIM 55. Planning to transition from cardiac chair to tilt chair. Max a to seated and can maintain balance for brief periods. Dressing max A upper, total A lower body. 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 Will likely need power wheelchair. * Status post C5-6 laminectomy and C5-C7 posterior fusion on 10/16/16. Hard cervical collar when out of bed. Can remove collar to shower. * Fever. UA, CBC c/w UTI on 11/06/16. Start nitrofurantoin; await C&S. Not coughing, has no dyspnea and O2 sat is stable. D/C Calero week of 11/09/16. * Edema, RUE. Already therapeutic on warfarin. Remove PICC. * Possible neurogenic bowel and bladder. She will be treated with neurogenic bowel protocol. Schedule bisacodyl suppository for 1600 daily. She will be assessed for readiness to remove Calero catheter. Calero will be continued initially to prevent skin risk if she is incontinent of urine. * Hypotension, related to spinal cord injury. Improving, w/out hypotension, though droxidopa was not continued upon admission from acute hospital. Continue midodrine and fludrocortisone; increased midodrine c from 5 to 10 mg three times daily starting 10/30/16 and administer first dose 30 min before arising in AM. Continue abdominal binder and thigh-high BING hose. If her mean arterial pressure drops below 65, the BING hose can be replaced with Garland wraps. * Shoulder pain: requests massage therapy and acupuncture, ordered. Add PRN tramadol 11/06/16. Chronic/stable conditions: * Paroxysmal atrial fibrillation. She is on warfarin. Her INR is stable at 2.2 today 10/30/16 and 2.44 on 11/02/16. Continue current warfarin dosing. Repeat INR 10/06/16. * History of complete atrioventricular block, status post pacemaker placement. She will be monitored. * History of anxiety and depression. Continue fluoxetine. * Osteoporosis. She is on vitamin D supplementation. Vitamin D level wnl . * Wound care. Her incision appears to be closed likely with dissolvable subcuticular sutures, and possibly skin glue. She can shower. * History of pulmonary emboli. Continue warfarin and oxygen as needed. * Hypoxemia. Per her report, she did not use oxygen during the day prior to her hospitalization. She will have incentive spirometry and continue with monitoring of oxygenation. It is hoped that she can be liberated from oxygen at least during the day during her stay. * Prophylaxis warfarin will be adequate for deep venous thrombosis prophylaxis. She is at high risk with her paraparesis. There is no indication for gastrointestinal prophylaxis. Lives with in [place], 1 [facility]IL[facility] from [facility]. Has a local son; dtr out of state. Expect 8 weeks LOS with discharge 12/29/16. 11/06/16 12:02 Subjective: Had a fever earlier this morning, resolved after APAP. C/O R shoulder and upper arm pain; had L shoulder pain also but it has resolved. Might be due to increased activity yesterday. Has swelling R hand and wrist. No cough/dyspnea , no f/c. Notes return of muscle function core, shoulders, and improved movement in her feet. Objective: Vital Signs Temp Pulse Resp BP Pulse Ox 37.0 C 73 16 120/62 93 11/06/16 09:24 11/06/16 07:00 11/06/16 07:00 11/06/16 07:00 11/06/16 07:00 11/05/16 11/06/16 11/07/16 05:59 05:59 05:59 Intake Total 890 1950 200 Output Total 1250 1900 Balance -360 50 200 PT 28.2 SEC (12.0-15.0) H 11/06/16 06:30 INR 2.61 (0.83-1.16) H 11/06/16 06:30 Physical Exam - Physical Exam General Appearance: WD/WN, alert, no apparent distress Respiratory: normal breath sounds, No crackles, No rhonchi, No wheezing Cardiac/Chest: regular rate, rhythm, edema (R hand and wrist 1+) Skin: normal color, warm/dry, other (Warm and mildly diaphoretic over back) Neuro/Psych: alert, normal mood/affect, oriented x 3 ICD10 Worksheet Patient Problems: Problems Problem Status Onset Cervical cord compression with myelopathy Acute S/P laminectomy Acute
[2016-11-06 11:51] LABS: % IMMATURE GRANULYOCYTES 0.6 % (0.0-1.1); ABSOLUTE IMMATURE GRANULOCYTES 0.06 10^3/uL (0.00-0.10); ADD DIFF? NO; ADD MORPH? NO; ADD SCAN? NO; ATYPICAL LYMPHOCYTE FLAG 30 (0-99); FRAGMENT RBC FLAG 0 (0-99); HEMOGLOBIN 11.5 g/dL (12.6-16.3); LEFT SHIFT FLG 0 (0-99); LIPEMIA HEMOLYSIS FLAG 80 (0-99); MEAN CELL HEMOGLOBIN 31.9 pg (27.9-34.1); MEAN CELL HEMOGLOBIN CONCENTR. 32.9 g/dL (32.4-36.7); MEAN CELL VOLUME 97.2 fL (81.5-99.8); MEAN PLATELET VOLUME 9.8 fL (8.7-11.7); PLATELET CLUMPS FLAG 0 (0-99); PLATELET COUNT 410 10^3/uL (150-400); RED CELL DISTRIBUTION WIDTH 13.6 % (11.5-15.2)
[2016-11-06] MEDS: traMADol 50 MG TAB PO PRN (11:52)
[2016-11-06 11:56] LABS: COLOR YELLOW; LEUKOCYTE ESTERASE,URINE 3+ (NEGATIVE); NITRITE,URINE POSITIVE (NEGATIVE)
[2016-11-06 12:01] LABS: BACTERIA 1+ /hpf (NONE SEEN); MUCUS 1+ /lpf (NONE-1+); RBC,URINE 15-25 /hpf (0-3); WBC,URINE 50-182 /hpf (0-3)
[2016-11-06] MEDS: NITROFURANTOIN MACROBID 100 MG CAP PO SCH (13:20)
[2016-11-06] MEDS: BISACODYL 10 MG SUPP PR SCH (16:12)
[2016-11-06] MEDS: WARFARIN SODIUM 2.5 MG TAB PO SCH (16:13)
[2016-11-07] MEDS: NITROFURANTOIN MACROBID 100 MG CAP PO SCH ×3 (06:34→20:23)
[2016-11-07] MEDS: GABAPENTIN 400 MG CAP PO SCH ×3 (06:34→20:23)
[2016-11-07] MEDS: ACETAMINOPHEN 325 MG TAB PO PRN ×3 (06:36→20:23)
[2016-11-07] MEDS: traMADol 50 MG TAB PO PRN ×3 (08:03→16:15)
[2016-11-07] MEDS: CYANO/VITAMIN B12 1000 MCG TAB PO SCH (09:28)
[2016-11-07] MEDS: CHOLECALCIFEROL VIT D3 1,000 UNITS TAB PO SCH (09:28)
[2016-11-07] MEDS: FLUDROCORTISONE ACETATE 0.1 MG TAB PO SCH (09:29)
[2016-11-07] MEDS: FLUoxetine 20 MG CAP PO SCH (09:29)
--- NOTE | 2016-11-07 10:13 | SOAPPROG ---
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 Physical and occupational therapy to optimize her mobility and activities of daily living. Continues to have return of muscle function. Initial FIM 55. Planning to transition from cardiac chair to tilt chair. Max a to seated and can maintain balance for brief periods. Dressing max A upper, total A lower body. 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 Will likely need power wheelchair. * Status post C5-6 laminectomy and C5-C7 posterior fusion on 10/16/16. Hard cervical collar when out of bed. Can remove collar to shower. * Fever. UA, CBC c/w UTI on 11/06/16. Start nitrofurantoin; PRELIM CX GRAM NEGROD LACTOSE FERM, WHICH SHOULD BE COVERED WITH NITROFURANTOIN. Not coughing , has no dyspnea and O2 sat is stable. D/C Calero week of 11/09/16. * Edema, RUE. Already therapeutic on warfarin. Remove PICC. * Possible neurogenic bowel and bladder. She will be treated with neurogenic bowel protocol. Schedule bisacodyl suppository for 1600 daily. She will be assessed for readiness to remove Calero catheter. Calero will be continued initially to prevent skin risk if she is incontinent of urine. * Hypotension, related to spinal cord injury. Improving, w/out hypotension, though droxidopa was not continued upon admission from acute hospital. Continue midodrine and fludrocortisone; increased midodrine c from 5 to 10 mg three times daily starting 10/30/16 and administer first dose 30 min before arising in AM. Continue abdominal binder and thigh-high BING hose. If her mean arterial pressure drops below 65, the BING hose can be replaced with Garland wraps. * Shoulder pain: BEGIN LIDODERM PATCH. Add PRN tramadol 11/06/16. * Neuropysch- CONSULT RECOMMNEDED TO ASSESS BASELINE COGNITION Chronic/stable conditions: * Paroxysmal atrial fibrillation. She is on warfarin. Her INR is stable at 2.2 today 10/30/16 and 2.44 on 11/02/16. Continue current warfarin dosing. Repeat INR 10/06/16. * History of complete atrioventricular block, status post pacemaker placement. She will be monitored. * History of anxiety and depression. Continue fluoxetine. * Osteoporosis. She is on vitamin D supplementation. Vitamin D level wnl . * Wound care. Her incision appears to be closed likely with dissolvable subcuticular sutures, and possibly skin glue. She can shower. * History of pulmonary emboli. Continue warfarin and oxygen as needed. * Hypoxemia. Per her report, she did not use oxygen during the day prior to her hospitalization. She will have incentive spirometry and continue with monitoring of oxygenation. It is hoped that she can be liberated from oxygen at least during the day during her stay. * Prophylaxis warfarin will be adequate for deep venous thrombosis prophylaxis. She is at high risk with her paraparesis. There is no indication for gastrointestinal prophylaxis. Plan: 11/07/16 10:17 Subjective: She c/o left shoulder pain that began in therapy yesterday. She reports her legs are stronger than her arms. She also states that she has had chronic hypotension dating back prior to recent fall, and states that the hypotension was the cause of her fall. Objective: Vital Signs Temp Pulse Resp BP Pulse Ox 36.8 C 60 17 108/66 93 11/07/16 07:02 11/07/16 07:02 11/07/16 07:02 11/07/16 07:02 11/07/16 07:02 Laboratory Results 11/06/16 10:55 11/06/16 11/07/16 11/08/16 05:59 05:59 05:59 Intake Total 1950 1400 500 Output Total 1900 2400 Balance 50 -1000 500 PT 28.2 SEC (12.0-15.0) H 11/06/16 06:30 INR 2.61 (0.83-1.16) H 11/06/16 06:30 Physical Exam - Physical Exam General Appearance: WD/WN, alert, no apparent distress Respiratory: chest non-tender, lungs clear, normal breath sounds Cardiac/Chest: No edema, No JVD Abdomen: non-tender, soft Skin: normal color, warm/dry Extremities: other (mild tenderness left subacromial region. No subluxation.), No swelling, No Wilner's sign Neuro/Psych: motor weakness, sensory deficit (C6 INCOMPLETE QUAD. MOTOR FUNCTION MORE PRONOUNCED LUE THAN RIGHT; UEs >LEsSTRONGER THAN LEs), other ( Somewhat tangential. ) ICD10 Worksheet Patient Problems: Problems Problem Status Onset Cervical cord compression with myelopathy Acute S/P laminectomy Acute
[2016-11-07] MEDS: LIDOCAINE 5% 1 EA PATCH TD SCH (10:36)
[2016-11-07] MEDS: MIDODRINE HCL 5 MG TAB PO SCH ×2 (12:34→16:16)
[2016-11-07] MEDS: oxyCODONE IR 5 MG TAB PO PRN ×2 (13:38→20:23)
[2016-11-07] MEDS: SENNOSIDES 1 TAB PO PRN (13:47)
[2016-11-07] MEDS: WARFARIN SODIUM 5 MG TAB PO SCH (16:16)
[2016-11-07] MEDS: BISACODYL 10 MG SUPP PR SCH (16:43)
--- NOTE | 2016-11-07 18:21 | SOAPPROG ---
SOAP Progress Note Assessment/Plan: Assessment: Plan: Objective: Vital Signs Temp Pulse Resp BP Pulse Ox 36.8 C 60 17 135/77 H 97 11/07/16 07:02 11/07/16 16:19 11/07/16 07:02 11/07/16 16:19 11/07/16 16:19 Laboratory Results 11/06/16 10:55 11/06/16 11/07/16 11/08/16 05:59 05:59 05:59 Intake Total 1950 1400 700 Output Total 1900 2400 650 Balance 50 -1000 50 PT 28.2 SEC (12.0-15.0) H 11/06/16 06:30 INR 2.61 (0.83-1.16) H 11/06/16 06:30 - Time Spent With Patient Time Spent With Patient: JOSE COMPLAINS OF SHOULDER PAIN STARTING TODAY - NOT SURE WHAT CAUSED IT. RIGHT SHOULDER HAD BEEN MORE PAINFUL, BUT THAT SUBSIDED ON ITS OWN AND PAIN MOVED TO LEFT SHOULDER. FEELS LIKE IN THE JOINT - "ROTATOR CUFF AREA". PAINFUL TO LIFT ANTERIOR OR LATERAL. AURICULAR: BILAT [place]LE[place] POINTS WITH C-SPINE A LACEY AROUND C4 BODY: LEFT - SJ14, LI16 X2, K27 (A LACEY, LOCAL & SPIRIT POINT), SI3 (SHOULDER & SPINE) , LU5 (ROTATOR CUFF), SI2 & SJ2 INTO THE JOINT FOR SHOULDER JOINT PAIN BILAT - LINGKU (PAIN), DA ROBYN (NECK), SP9 (SHOULDER), ST38 (SHOULDER, ANTERIOR) , LR3 (MOVE QI) NEEDLES RETAINED FOR 45 MIN ICD10 Worksheet Patient Problems: Problems Problem Status Onset Cervical cord compression with myelopathy Acute S/P laminectomy Acute
[2016-11-07] MEDS: PATCH REMOVAL 1 EA PATCH TD SCH (21:52)
[2016-11-08] MEDS: oxyCODONE IR 5 MG TAB PO PRN ×5 (01:13→21:14)
[2016-11-08] MEDS: MIDODRINE HCL 5 MG TAB PO SCH ×3 (06:12→15:59)
[2016-11-08] MEDS: GABAPENTIN 400 MG CAP PO SCH ×3 (06:12→21:14)
[2016-11-08] MEDS: ACETAMINOPHEN 325 MG TAB PO PRN ×3 (06:13→21:14)
[2016-11-08] MEDS: traMADol 50 MG TAB PO PRN ×2 (07:36→15:59)
--- NOTE | 2016-11-08 08:41 | SOAPPROG ---
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 Physical and occupational therapy to optimize her mobility and activities of daily living. Continues to have return of muscle function. Initial FIM 55. Planning to transition from cardiac chair to tilt chair. Max A to seated and can maintain balance for brief periods. Dressing max A upper, total A lower body. 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 Will likely need power wheelchair. * Status post C5-6 laminectomy and C5-C7 posterior fusion on 10/16/16. Hard cervical collar when out of bed. Can remove collar to shower. * Fever. TEMP THIS AM WAS 100.3. FINAL REPORT SHOWS E COLI SENSITIVE TO NITROFURANTOIN. Not coughing, has no dyspnea and O2 sat is stable. D/C Calero week of 11/09/16. * R/O PNEUMONIA - CRACKLES IN RIGHT LUNG [place] AND LOW GRADE FEVER. WILL CHECK CXR THIS AM. * Edema, RUE. Already therapeutic on warfarin. Remove PICC. * Possible neurogenic bowel and bladder. She will be treated with neurogenic bowel protocol. Schedule bisacodyl suppository for 1600 daily. She will be assessed for readiness to remove Calero catheter. Calero will be continued initially to prevent skin risk if she is incontinent of urine. * Hypotension, related to spinal cord injury. Improving, w/out hypotension, though droxidopa was not continued upon admission from acute hospital. Continue midodrine and fludrocortisone; increased midodrine c from 5 to 10 mg three times daily starting 10/30/16 and administer first dose 30 min before arising in AM. Continue abdominal binder and thigh-high BING hose. If her mean arterial pressure drops below 65, the BING hose can be replaced with Garland wraps. * SHOULDER PAIN:LIDODERM PATCH STARTED YESTERDAY. SHE HAD 4 DOSES OF OXYCODONE SINCE YESTERDAY. WILL SEND FOR LEFT SHOULDER XRAYS TODAY WELL CXR. * POSSIBLE CERVICAL SYRINX. GIVEN THE ACUITY OF LEFT SHOULDER PAIN IN CONTEST OF RECENT CERVICAL SPINE SURGERY AND SCI, CERVICAL SYRINX SHOULD BE R/O'D. RECOMMEND CERVICAL SPINE MRI. * Neuropysch- CONSULT RECOMMENDED TO ASSESS BASELINE COGNITION Chronic/stable conditions: * Paroxysmal atrial fibrillation. She is on warfarin. Her INR is stable at 2.2 today 10/30/16 and 2.44 on 11/02/16. Continue current warfarin dosing. Repeat INR 10/06/16. * History of complete atrioventricular block, status post pacemaker placement. She will be monitored. * History of anxiety and depression. Continue fluoxetine. * Osteoporosis. She is on vitamin D supplementation. Vitamin D level wnl . * Wound care. Her incision appears to be closed likely with dissolvable subcuticular sutures, and possibly skin glue. She can shower. * History of pulmonary emboli. Continue warfarin and oxygen as needed. * Hypoxemia. Per her report, she did not use oxygen during the day prior to her hospitalization. She will have incentive spirometry and continue with monitoring of oxygenation. It is hoped that she can be liberated from oxygen at least during the day during her stay. * Prophylaxis warfarin will be adequate for deep venous thrombosis prophylaxis. She is at high risk with her paraparesis. There is no indication for gastrointestinal prophylaxis. Plan: 11/07/16 10:17 11/08/16 08:46 Subjective: She continues to c/o severe left shoulder pain in subacromial area. It is worse with movement and she thinks at times it may radiate down the arm into the forearm. She is not a good historian. She also reports some increased tingling in the left arm and forearm. She thinks she may have some numbness around her lips. She denies numbness in a cape like distribution. Objective: Vital Signs Temp Pulse Resp BP Pulse Ox 37.9 C 60 14 112/60 94 11/08/16 07:16 11/08/16 07:16 11/08/16 07:16 11/08/16 07:16 11/08/16 07:16 Microbiology 11/06/16 11:56 Urine Culture - Final Urine,Clean Catch Escherichia Coli Laboratory Results 11/06/16 10:55 11/07/16 11/08/16 11/09/16 05:59 05:59 05:59 Intake Total 1400 1220 Output Total 2400 1250 Balance -1000 -30 PT 28.2 SEC (12.0-15.0) H 11/06/16 06:30 INR 2.61 (0.83-1.16) H 11/06/16 06:30 Physical Exam - Physical Exam General Appearance: WD/WN, alert, mild distress, other (mild distress when examining left shoulder) Neck: other (hard collar in place) Respiratory: crackles, other (crackles base right lung llamas. Decreased right sided breath sounds) Abdomen: non-tender, soft Skin: normal color, warm/dry Extremities: other (left subacromial region tender to palpation. Increased pain with PROM foward flex and abduction. Pos Griffith test. Patient not sure if she has circumoral numbness) Neuro/Psych: alert, No motor weakness, No sensory deficit, No cognition abnormalities ICD10 Worksheet Patient Problems: Problems Problem Status Onset Cervical cord compression with myelopathy Acute S/P laminectomy Acute
[2016-11-08] MEDS: CHOLECALCIFEROL VIT D3 1,000 UNITS TAB PO SCH (09:16)
[2016-11-08] MEDS: CYANO/VITAMIN B12 1000 MCG TAB PO SCH (09:17)
[2016-11-08] MEDS: SENNOSIDES 1 TAB PO PRN (09:17)
[2016-11-08] MEDS: FLUoxetine 20 MG CAP PO SCH (09:18)
[2016-11-08] MEDS: NITROFURANTOIN MACROBID 100 MG CAP PO SCH ×2 (09:18→21:13)
[2016-11-08] MEDS: FLUDROCORTISONE ACETATE 0.1 MG TAB PO SCH (09:19)
[2016-11-08] MEDS: LIDOCAINE 5% 1 EA PATCH TD SCH (09:21)
[2016-11-08] MEDS: BISACODYL 10 MG SUPP PR SCH (15:59)
[2016-11-08] MEDS: WARFARIN SODIUM 5 MG TAB PO SCH (16:00)
[2016-11-08] MEDS: POLYETHYLENE GLYCOL 3350 17 GM PKT PO PRN (17:12)
[2016-11-09] MEDS: PATCH REMOVAL 1 EA PATCH TD SCH ×2 (05:16→20:42)
[2016-11-09] MEDS: CYANO/VITAMIN B12 1000 MCG TAB PO SCH (11:20)
[2016-11-09] MEDS: CHOLECALCIFEROL VIT D3 1,000 UNITS TAB PO SCH (11:20)
[2016-11-09] MEDS: FLUoxetine 20 MG CAP PO SCH (11:20)
[2016-11-09] MEDS: FLUDROCORTISONE ACETATE 0.1 MG TAB PO SCH (11:20)
[2016-11-09] MEDS: NITROFURANTOIN MACROBID 100 MG CAP PO SCH ×2 (11:21→20:27)
[2016-11-09] MEDS: LIDOCAINE 5% 1 EA PATCH TD SCH (11:21)
[2016-11-09] MEDS: MIDODRINE HCL 5 MG TAB PO SCH ×3 (11:21→15:05)
[2016-11-09] MEDS: GABAPENTIN 400 MG CAP PO SCH ×3 (11:26→20:27)
--- NOTE | 2016-11-09 11:39 | SOAPPROG ---
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 Imitial FIM 55 on ; decrease to 54 related to L shoulder pain and needing more assistance with upper-body activities. Has improved core and LE strength but not yet translating functionally. Continue PT & OT to optimize her mobility and activities of daily living. Dressing max A upper, total A lower body. 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 Will likely need power wheelchair. * Status post C5-6 laminectomy and C5-C7 posterior fusion on 10/16/16. Hard cervical collar when out of bed. Can remove collar to shower. * L shoulder pain. XR wnl 11/09/16. Proceed to MRI. D/W Dr. Humphrey, Neurosurgery : C-spine hardware is non-ferrous, safe for MRI. He suggests MRI C-spine also. * Fever. UA, CBC c/w UTI on 11/06/16. Cx with varma-sensitive E. coli. Continue 7 days of nitrofurantoin. D/C Calero week of 11/09/16. * Edema, RUE. Already therapeutic on warfarin. Remove PICC. * Possible neurogenic bowel and bladder. She will be treated with neurogenic bowel protocol. Schedule bisacodyl suppository for 1600 daily. She will be assessed for readiness to remove Calero catheter. Calero will be continued initially to prevent skin risk if she is incontinent of urine. * Hypotension, related to spinal cord injury. Improving, w/out hypotension, though droxidopa was not continued upon admission from acute hospital. Continue midodrine and fludrocortisone; increased midodrine c from 5 to 10 mg three times daily starting 10/30/16 and administer first dose 30 min before arising in AM. Continue abdominal binder and thigh-high BING hose. If her mean arterial pressure drops below 65, the BING hose can be replaced with Garland wraps. * Shoulder pain: requests massage therapy and acupuncture, ordered. Add PRN tramadol 11/06/16. Chronic/stable conditions: * Paroxysmal atrial fibrillation. She is on warfarin. Her INR is stable at 2.2 today 10/30/16 and 2.44 on 11/02/16. Continue current warfarin dosing. Repeat INR 10/06/16. * History of complete atrioventricular block, status post pacemaker placement. She will be monitored. * History of anxiety and depression. Continue fluoxetine. * Osteoporosis. She is on vitamin D supplementation. Vitamin D level wnl . * Wound care. Her incision appears to be closed likely with dissolvable subcuticular sutures, and possibly skin glue. She can shower. * History of pulmonary emboli. Continue warfarin and oxygen as needed. * Hypoxemia. Per her report, she did not use oxygen during the day prior to her hospitalization. She will have incentive spirometry and continue with monitoring of oxygenation. It is hoped that she can be liberated from oxygen at least during the day during her stay. * Prophylaxis warfarin will be adequate for deep venous thrombosis prophylaxis. She is at high risk with her paraparesis. There is no indication for gastrointestinal prophylaxis. Attended staffing, 15 min. D/W case mgmt, [place] human services case manager, nursing, PT, OT , car dumper. Lives with in [facility], 1 [facility]IL[facility] from [facility]. Has a local son; dtr out of state. Expect 8 weeks LOS with discharge 12/29/16. 11/09/16 11:31 11/09/16 13:57 Subjective: C/O L shoulder pain, X 2 days. Woke up with it. Also tenderness, and hurts with pressure or movement. No cough/dyspnea, f/c. Not sure if lidocaine patch is helping. Oxycodone helps for a while; shes concerned re becoming dependent. Objective: Vital Signs Temp Pulse Resp BP Pulse Ox 36.9 C 60 17 99/49 L 86 L 11/08/16 18:25 11/08/16 18:25 11/08/16 18:25 11/08/16 23:50 11/09/16 05:32 Microbiology 11/06/16 11:56 Urine Culture - Final Urine,Clean Catch Escherichia Coli Laboratory Results 11/06/16 10:55 11/08/16 11/09/16 11/10/16 05:59 05:59 05:59 Intake Total 1220 590 240 Output Total 1250 2350 Balance -30 -1760 240 PT 28.2 SEC (12.0-15.0) H 11/06/16 06:30 INR 2.61 (0.83-1.16) H 11/06/16 06:30 - Time Spent With Patient Time Spent With Patient: Greater than 35 minutes floor time today, including more than 50% of time in coordination of care during staffing, and counseling patient. Physical Exam - Physical Exam General Appearance: WD/WN, alert, no apparent distress Respiratory: normal breath sounds, No crackles, No rhonchi, No wheezing Cardiac/Chest: regular rate, rhythm, No diastolic murmur, No systolic murmur Skin: normal color, warm/dry Extremities: other (TTP over L trapezeus and glenohumeral joint. Able to abduct at L shoulder but painful) ICD10 Worksheet Patient Problems: Problems Problem Status Onset Cervical cord compression with myelopathy Acute S/P laminectomy Acute
[2016-11-09] MEDS: oxyCODONE IR 5 MG TAB PO PRN ×2 (12:24→15:48)
[2016-11-09] MEDS: WARFARIN SODIUM 2.5 MG TAB PO SCH (15:08)
[2016-11-09] MEDS: BISACODYL 10 MG SUPP PR SCH (15:32)
[2016-11-09] MEDS: traMADol 50 MG TAB PO PRN (20:27)
[2016-11-10] MEDS: GABAPENTIN 400 MG CAP PO SCH ×3 (06:24→21:16)
[2016-11-10] MEDS: MIDODRINE HCL 5 MG TAB PO SCH ×3 (07:47→16:22)
[2016-11-10] MEDS: traMADol 50 MG TAB PO PRN ×2 (07:48→21:17)
--- NOTE | 2016-11-10 08:26 | SOAPPROG ---
SOAP Progress Note Assessment/Plan: Assessment: 76 o F with pre-existing cervical spine DJD who suffered a fall on 10/16/16 with cervical spinal cord injury and underwent emergent cervical laminectomy C5 to C6 and posterior fusion C5 - C7 and presents with incomplete quadriplegia at the C6 level, RISHI class C: 11/10/2016 bilateral shoulder pain, most consistent with impingement syndrome, likely related to muscle imbalance in the setting of cervical spine injury. On the left she appears to have tenderness at the bicep groove, consistent with results seen on x-ray of a bicipital tendinopathy. She has positive Griffith bilaterally. Concerned that she may be developing adhesive capsulitis on the left shoulder given significant pain in all range of motion. Consider MRI today as outlined in prior plan, however may be able to treat symptomatically and defer to outpatient. * Incomplete quadriplegia at the C6 level, RISHI class C. Imitial FIM 55 on ; decrease to 54 related to L shoulder pain and needing more assistance with upper-body activities. Has improved core and LE strength but not yet translating functionally. Continue PT & OT to optimize her mobility and activities of daily living. Dressing max A upper, total A lower body. 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 Will likely need power wheelchair. * Status post C5-6 laminectomy and C5-C7 posterior fusion on 10/16/16. Hard cervical collar when out of bed. Can remove collar to shower. * L shoulder pain. XR wnl 11/09/16. Proceed to MRI. D/W Dr. Humphrey, Neurosurgery : C-spine hardware is non-ferrous, safe for MRI. He suggests MRI C-spine also. Consider inpt vs outpt. Continue with conservative pain management, continue physical and occupational therapy, focusing on gentle range of motion and strengthening of the shoulder girdle. * Fever. UA, CBC c/w UTI on 11/06/16. Cx with varma-sensitive E. coli. Continue 7 days of nitrofurantoin. D/C Calero week of 11/09/16. * Edema, RUE. Already therapeutic on warfarin. Remove PICC. * Possible neurogenic bowel and bladder. She will be treated with neurogenic bowel protocol. Schedule bisacodyl suppository for 1600 daily. She will be assessed for readiness to remove Calero catheter. Calero will be continued initially to prevent skin risk if she is incontinent of urine. * Hypotension, related to spinal cord injury. Improving, w/out hypotension, though droxidopa was not continued upon admission from acute hospital. Continue midodrine and fludrocortisone; increased midodrine c from 5 to 10 mg three times daily starting 10/30/16 and administer first dose 30 min before arising in AM. Continue abdominal binder and thigh-high BING hose. If her mean arterial pressure drops below 65, the BING hose can be replaced with Garland wraps. * Shoulder pain: requests massage therapy and acupuncture, ordered. Add PRN tramadol 11/06/16. Chronic/stable conditions: * Paroxysmal atrial fibrillation. She is on warfarin. Her INR is stable at 2.2 today 10/30/16 and 2.44 on 11/02/16. Continue current warfarin dosing. Repeat INR 10/06/16. * History of complete atrioventricular block, status post pacemaker placement. She will be monitored. * History of anxiety and depression. Continue fluoxetine. * Osteoporosis. She is on vitamin D supplementation. Vitamin D level wnl . * Wound care. Her incision appears to be closed likely with dissolvable subcuticular sutures, and possibly skin glue. She can shower. * History of pulmonary emboli. Continue warfarin and oxygen as needed. * Hypoxemia. Per her report, she did not use oxygen during the day prior to her hospitalization. She will have incentive spirometry and continue with monitoring of oxygenation. It is hoped that she can be liberated from oxygen at least during the day during her stay. * Prophylaxis warfarin will be adequate for deep venous thrombosis prophylaxis. She is at high risk with her paraparesis. There is no indication for gastrointestinal prophylaxis. Lives with in [facility], 1 [facility] from [facility]. Has a local son; dtr out of state. Expect 8 weeks LOS with discharge 12/29/16. 11/05/16 10:13 11/10/16 08:21 Subjective: CC: Shoulder pain no acute events overnight. Patient continues to endorse left-sided greater than right shoulder pain, anterior and posterior on both sides. She notes that she had occasional shoulder problems prior to the neck injury, but nothing significant. 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 X-ray of the shoulder showed a possible bicep tendinopathy on the left. Participating will and therapies otherwise, no new symptoms. Otherwise, sleeping well, therapy is going well. Objective: Vital Signs Temp Pulse Resp BP Pulse Ox 37.4 C 60 16 88/62 L 92 11/10/16 07:32 11/10/16 07:32 11/10/16 07:32 11/10/16 07:32 11/10/16 07:32 Laboratory Results 11/06/16 10:55 11/09/16 11/10/16 11/11/16 05:59 05:59 05:59 Intake Total 590 490 Output Total 2350 1950 Balance -1760 -1460 PT 28.2 SEC (12.0-15.0) H 11/06/16 06:30 INR 2.61 (0.83-1.16) H 11/06/16 06:30 Physical Exam - Physical Exam General Appearance: WD/WN, alert, no apparent distress Respiratory: lungs clear, normal breath sounds, No respiratory distress, No accessory muscle use Cardiac/Chest: normal peripheral pulses, regular rate, rhythm, No edema Skin: normal color, warm/dry, No cyanosis Extremities: other ( Left shoulder with positive tenderness at the anterior bicipital groove, more painful on passive flexion and extension. Also has pain on internal rotation while shoulder is abducted to 90 on both sides ( positive Griffith), also has tenderness along the supraspinatus muscle and tendon. On the left, she has pain in all planes of motion, on the right side, this is not the case.) Neuro/Psych: alert, normal mood/affect, other ( Weakness of the bilateral upper extremities, not quantified in detail today) ICD10 Worksheet Patient Problems: Problems Problem Status Onset Cervical cord compression with myelopathy Acute S/P laminectomy Acute
[2016-11-10] MEDS: CHOLECALCIFEROL VIT D3 1,000 UNITS TAB PO SCH (09:25)
[2016-11-10] MEDS: FLUDROCORTISONE ACETATE 0.1 MG TAB PO SCH (09:26)
[2016-11-10] MEDS: LIDOCAINE 5% 1 EA PATCH TD SCH (09:26)
[2016-11-10] MEDS: FLUoxetine 20 MG CAP PO SCH (09:26)
[2016-11-10] MEDS: CYANO/VITAMIN B12 1000 MCG TAB PO SCH (09:26)
[2016-11-10] MEDS: SENNOSIDES 1 TAB PO PRN (09:27)
[2016-11-10] MEDS: POLYETHYLENE GLYCOL 3350 17 GM PKT PO PRN (09:27)
[2016-11-10] MEDS: NITROFURANTOIN MACROBID 100 MG CAP PO SCH ×2 (09:27→21:17)
[2016-11-10] MEDS: oxyCODONE IR 5 MG TAB PO PRN (09:27)
[2016-11-10] MEDS: ACETAMINOPHEN 325 MG TAB PO PRN (13:15)
[2016-11-10] MEDS: WARFARIN SODIUM 5 MG TAB PO SCH (16:22)
[2016-11-10] MEDS: BISACODYL 10 MG SUPP PR SCH (16:22)
[2016-11-10] MEDS: ACETAMINOPHEN 500 MG TAB PO SCH (21:16)
[2016-11-10] MEDS: SENNOSIDES 1 TAB PO SCH (21:17)
[2016-11-11] MEDS: PATCH REMOVAL 1 EA PATCH TD SCH ×2 (02:19→22:43)
[2016-11-11] MEDS: GABAPENTIN 400 MG CAP PO SCH ×3 (06:24→21:07)
[2016-11-11] MEDS: ACETAMINOPHEN 500 MG TAB PO SCH ×3 (06:24→21:06)
[2016-11-11] MEDS: MIDODRINE HCL 5 MG TAB PO SCH ×3 (08:27→16:26)
[2016-11-11] MEDS: CYANO/VITAMIN B12 1000 MCG TAB PO SCH (08:28)
[2016-11-11] MEDS: FLUDROCORTISONE ACETATE 0.1 MG TAB PO SCH (08:28)
[2016-11-11] MEDS: CHOLECALCIFEROL VIT D3 1,000 UNITS TAB PO SCH (08:28)
[2016-11-11] MEDS: FLUoxetine 20 MG CAP PO SCH (08:28)
[2016-11-11] MEDS: NITROFURANTOIN MACROBID 100 MG CAP PO SCH ×2 (08:29→21:07)
[2016-11-11] MEDS: traMADol 50 MG TAB PO PRN (08:29)
[2016-11-11] MEDS: SENNOSIDES 1 TAB PO SCH ×2 (08:29→21:07)
[2016-11-11] MEDS: POLYETHYLENE GLYCOL 3350 17 GM PKT PO SCH (08:29)
[2016-11-11] MEDS: LIDOCAINE 5% 1 EA PATCH TD SCH (11:09)
--- NOTE | 2016-11-11 13:45 | SOAPPROG ---
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 Initial FIM 55 on ; decrease to 54 related to L shoulder pain and needing more assistance with upper-body activities. Has improved core and LE strength but not yet translating functionally. Continue PT & OT to optimize her mobility and activities of daily living. Dressing max A upper, total A lower body. 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 Will likely need power wheelchair. * Status post C5-6 laminectomy and C5-C7 posterior fusion on 10/16/16. Hard cervical collar when out of bed. Can remove collar to shower. * L shoulder pain. XR wnl 11/09/16. Improved 11/11/16; MRI d/c'd. Continue tramadol PRN and gabapentin. Had AMS on oxycodone. * Fever. UA, CBC c/w UTI on 11/06/16. Cx with varma-sensitive E. coli. Continue 7 days of nitrofurantoin. D/C Calero 11/12/16. * Edema, RUE. Already therapeutic on warfarin. Remove PICC. * Possible neurogenic bowel and bladder. She will be treated with neurogenic bowel protocol. Schedule bisacodyl suppository for 1600 daily. Remove Calero catheter in AM 11/12/16 and initiate rehabilitation bladder protocol. * Hypotension, related to spinal cord injury. Improving, w/out hypotension, though droxidopa was not continued upon admission from acute hospital. Continue midodrine and fludrocortisone; increased midodrine c from 5 to 10 mg three times daily starting 10/30/16 and administer first dose 30 min before arising in AM. Continue abdominal binder and thigh-high BING hose. If her mean arterial pressure drops below 65, the BING hose can be replaced with Garland wraps. * Shoulder pain: requests massage therapy and acupuncture, ordered. Add PRN tramadol 11/06/16. Chronic/stable conditions: * Paroxysmal atrial fibrillation. She is on warfarin. Her INR is stable at 2.2 today 5/26/17 and 2.44 on 11/02/16. Continue current warfarin dosing. Repeat INR 10/06/16. * History of complete atrioventricular block, status post pacemaker placement. She will be monitored. * History of anxiety and depression. Continue fluoxetine. * Osteoporosis. She is on vitamin D supplementation. Vitamin D level wnl . * Wound care. Her incision appears to be closed likely with dissolvable subcuticular sutures, and possibly skin glue. She can shower. * History of pulmonary emboli. Continue warfarin and oxygen as needed. * Hypoxemia. Per her report, she did not use oxygen during the day prior to her hospitalization. She will have incentive spirometry and continue with monitoring of oxygenation. It is hoped that she can be liberated from oxygen at least during the day during her stay. * Prophylaxis warfarin will be adequate for deep venous thrombosis prophylaxis. She is at high risk with her paraparesis. There is no indication for gastrointestinal prophylaxis. Lives with in [facility], 1 [address] from [facility]. Has a local son; dtr out of state. Expect 8 weeks LOS with discharge 12/29/16. 11/11/16 14:56 Subjective: L shoulder feels better. Has some neck pain. Had shower this morning. Denies cough, dyspnea, f/c. Objective: Vital Signs Temp Pulse Resp BP Pulse Ox 36.8 C 66 14 154/99 H 95 11/11/16 06:50 11/11/16 12:22 11/11/16 08:40 11/11/16 12:22 11/11/16 12:15 Laboratory Results 11/06/16 10:55 11/10/16 11/11/16 11/12/16 05:59 05:59 05:59 Intake Total 490 1180 360 Output Total 1950 2300 Balance -1460 -1120 360 PT 28.2 SEC (12.0-15.0) H 11/06/16 06:30 INR 2.61 (0.83-1.16) H 11/06/16 06:30 Physical Exam - Physical Exam General Appearance: WD/WN, alert, no apparent distress Respiratory: normal breath sounds, No crackles, No rhonchi, No wheezing Cardiac/Chest: regular rate, rhythm, No edema Skin: normal color, warm/dry Extremities: other (Mild tenderness L trapezeus.) Neuro/Psych: alert, normal mood/affect, oriented x 3, motor weakness ICD10 Worksheet Patient Problems: Problems Problem Status Onset Cervical cord compression with myelopathy Acute S/P laminectomy Acute
[2016-11-11] MEDS ORDERED: PREPARATION H 51 GM CRTUBE PR PRN (16:24)
[2016-11-11] MEDS: BISACODYL 10 MG SUPP PR SCH (16:27)
[2016-11-11] MEDS: WARFARIN SODIUM 2.5 MG TAB PO SCH (16:27)
[2016-11-12] MEDS: GABAPENTIN 400 MG CAP PO SCH ×3 (06:13→22:47)
[2016-11-12] MEDS: ACETAMINOPHEN 500 MG TAB PO SCH ×3 (06:13→22:47)
[2016-11-12] MEDS: traMADol 50 MG TAB PO PRN ×2 (08:08→19:32)
[2016-11-12] MEDS: MIDODRINE HCL 5 MG TAB PO SCH ×3 (08:10→16:54)
[2016-11-12] MEDS: NITROFURANTOIN MACROBID 100 MG CAP PO SCH ×2 (08:11→23:00)
[2016-11-12] MEDS: SENNOSIDES 1 TAB PO SCH ×2 (08:11→22:48)
[2016-11-12] MEDS: CHOLECALCIFEROL VIT D3 1,000 UNITS TAB PO SCH (08:11)
[2016-11-12] MEDS: CYANO/VITAMIN B12 1000 MCG TAB PO SCH (08:12)
[2016-11-12] MEDS: FLUoxetine 20 MG CAP PO SCH (08:12)
[2016-11-12] MEDS: LIDOCAINE 5% 1 EA PATCH TD SCH (08:12)
[2016-11-12] MEDS: FLUDROCORTISONE ACETATE 0.1 MG TAB PO SCH (08:12)
[2016-11-12] MEDS: POLYETHYLENE GLYCOL 3350 17 GM PKT PO SCH (08:12)
--- NOTE | 2016-11-12 12:21 | SOAPPROG ---
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 Initial FIM 55 on ; decrease to 54 on 11/09/16 related to L shoulder pain and needing more assistance with upper-body activities. Has improved core and LE strength but not yet translating functionally. Continue PT & OT to optimize her mobility and activities of daily living. Dressing max A upper, total A lower body. 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 Will likely need power wheelchair. * Status post C5-6 laminectomy and C5-C7 posterior fusion on 10/16/16. Hard cervical collar when out of bed. Can remove collar to shower. * L shoulder pain. XR wnl 11/09/16. Improved 11/11/16; MRI d/c'd. Continue tramadol PRN and gabapentin. Had AMS on oxycodone. * Fever. UA, CBC c/w UTI on 11/06/16. Cx with varma-sensitive E. coli. Continue 7 days of nitrofurantoin. D/C Calero 11/12/16. * Edema, RUE. Already therapeutic on warfarin. Remove PICC. * Possible neurogenic bowel and bladder. She will be treated with neurogenic bowel protocol. Schedule bisacodyl suppository for 1600 daily. Remove Calero catheter in AM 11/12/16 and initiate rehabilitation bladder protocol. * Hypotension, related to spinal cord injury. Improving, w/out hypotension, though droxidopa was not continued upon admission from acute hospital. Continue midodrine and fludrocortisone; increased midodrine c from 5 to 10 mg three times daily starting 10/30/16 and administer first dose 30 min before arising in AM. Continue abdominal binder and thigh-high BING hose. If her mean arterial pressure drops below 65, the BING hose can be replaced with Garland wraps. * Shoulder pain: requests massage therapy and acupuncture, ordered. Add PRN tramadol 11/06/16. Chronic/stable conditions: * Paroxysmal atrial fibrillation. She is on warfarin. Her INR is stable at 2.2 today 10/30/16 and 2.44 on 11/02/16, 2.61 on 11/06/16. Continue current warfarin dosing. Repeat INR 11/13/16. * History of complete atrioventricular block, status post pacemaker placement. She will be monitored. * History of anxiety and depression. Continue fluoxetine. * Osteoporosis. She is on vitamin D supplementation. Vitamin D level wnl . * Wound care. Her incision appears to be closed likely with dissolvable subcuticular sutures, and possibly skin glue. She can shower. * History of pulmonary emboli. Continue warfarin and oxygen as needed. * Hypoxemia. Per her report, she did not use oxygen during the day prior to her hospitalization. She will have incentive spirometry and continue with monitoring of oxygenation. It is hoped that she can be liberated from oxygen at least during the day during her stay. * Prophylaxis warfarin will be adequate for deep venous thrombosis prophylaxis. She is at high risk with her paraparesis. There is no indication for gastrointestinal prophylaxis. Lives with in [facility], 1 [address] from [facility]. Has a local son; dtr out of state. Expect 8 weeks LOS with discharge 12/29/16. 11/12/16 12:17 Subjective: No complaints. L shoulder feels better. Says she caught R arm under her when rolling in bed, but it feels OK. Calero coming out today. Objective: Vital Signs Temp Pulse Resp BP Pulse Ox 36.6 C 60 15 106/50 L 92 11/12/16 07:58 11/12/16 07:58 11/12/16 07:58 11/12/16 07:58 11/12/16 07:58 Laboratory Results 11/06/16 10:55 11/11/16 11/12/16 11/13/16 05:59 05:59 05:59 Intake Total 1180 1260 650 Output Total 2300 1450 Balance -1120 -190 650 PT 28.2 SEC (12.0-15.0) H 11/06/16 06:30 INR 2.61 (0.83-1.16) H 11/06/16 06:30 Physical Exam - Physical Exam General Appearance: WD/WN, alert, no apparent distress Respiratory: normal breath sounds, crackles (few inspiratory LLL), No rhonchi, No wheezing Cardiac/Chest: regular rate, rhythm, No edema Skin: normal color, warm/dry Neuro/Psych: alert, normal mood/affect, oriented x 3 ICD10 Worksheet Patient Problems: Problems Problem Status Onset Cervical cord compression with myelopathy Acute S/P laminectomy Acute
[2016-11-12] MEDS ORDERED: SYSTANE EYE DROPS EACHEYE PRN (12:59)
[2016-11-12] MEDS: WARFARIN SODIUM 5 MG TAB PO SCH (16:54)
[2016-11-12] MEDS: BISACODYL 10 MG SUPP PR SCH (17:45)
[2016-11-12 18:19] LABS: HEMOGLOBIN 10.7 g/dL (12.6-16.3); LIPEMIA HEMOLYSIS FLAG 80 (0-99); MEAN CELL HEMOGLOBIN 31.4 pg (27.9-34.1); MEAN CELL HEMOGLOBIN CONCENTR. 32.4 g/dL (32.4-36.7); MEAN CELL VOLUME 96.8 fL (81.5-99.8); PLATELET CLUMPS FLAG 0 (0-99); PLATELET COUNT 396 10^3/uL (150-400); RED BLOOD CELL COUNT 3.41 10^6/uL (4.18-5.33); RED CELL DISTRIBUTION WIDTH 12.9 % (11.5-15.2)
[2016-11-12 18:31] LABS: INR 2.65 (0.83-1.16); PROTIME(PATIENT) 28.6 SEC (12.0-15.0)
[2016-11-12 18:38] LABS: ANION GAP 12 mEq/L (8-16); CALCIUM 9.1 mg/dL (8.5-10.4); CARBON DIOXIDE 25 mEq/l (22-31); CHLORIDE 98 mEq/L (97-110); CREATININE 0.6 mg/dL (0.6-1.0); GLOMERULAR FILTRATION RATE > 60; GLUCOSE 108 mg/dL (70-100); POTASSIUM 3.8 mEq/L (3.5-5.2); SODIUM 135 mEq/L (134-144)
[2016-11-12] MEDS: PATCH REMOVAL 1 EA PATCH TD SCH (23:00)
[2016-11-13] MEDS: GABAPENTIN 400 MG CAP PO SCH ×3 (05:25→22:41)
[2016-11-13] MEDS: ACETAMINOPHEN 500 MG TAB PO SCH ×3 (05:25→22:41)
[2016-11-13 08:03] LABS: INR 2.85 (0.83-1.16); PROTIME(PATIENT) 30.3 SEC (12.0-15.0)
[2016-11-13] MEDS: MIDODRINE HCL 5 MG TAB PO SCH ×3 (08:14→16:19)
[2016-11-13] MEDS: FLUDROCORTISONE ACETATE 0.1 MG TAB PO SCH (08:15)
[2016-11-13] MEDS: POLYETHYLENE GLYCOL 3350 17 GM PKT PO SCH (09:50)
[2016-11-13] MEDS: SENNOSIDES 1 TAB PO SCH ×2 (09:51→22:41)
[2016-11-13] MEDS: CYANO/VITAMIN B12 1000 MCG TAB PO SCH (09:51)
[2016-11-13] MEDS: CHOLECALCIFEROL VIT D3 1,000 UNITS TAB PO SCH (09:51)
[2016-11-13] MEDS: FLUoxetine 20 MG CAP PO SCH (09:51)
[2016-11-13] MEDS: LIDOCAINE 5% 1 EA PATCH TD SCH (09:56)
--- NOTE | 2016-11-13 10:00 | SOAPPROG ---
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 Initial FIM 55 on ; decrease to 54 on 11/09/16 related to L shoulder pain and needing more assistance with upper-body activities. Has improved core and LE strength but not yet translating functionally. Continue PT & OT to optimize her mobility and activities of daily living. Dressing max A upper, total A lower body. 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 Will likely need power wheelchair. * Status post C5-6 laminectomy and C5-C7 posterior fusion on 10/16/16. Hard cervical collar when out of bed. Can remove collar to shower. * L shoulder pain. XR wnl 11/09/16. Improved 11/11/16; MRI d/c'd. Continue tramadol PRN and gabapentin. Had AMS on oxycodone. * Pneumonia, RLL on CXR 11/12/16, with persistently elevated WBCs; studies ordered due to fever. Levofloxacin 750 mg QD X 7 days for nosocomial pneumonia. * UTI on 11/06/16. Cx with varma-sensitive E. coli. Nitrofurantoin changed to levofloxacin.. D/C'd Calero 11/12/16. * Urinary retention. Due to spinal cord shock? Would expect incontinence with C6 injury rather than retention. Trial of bethanechol. Removed Calero catheter in AM . Continue rehabilitation bladder protocol. She prefers intermittent catheterization over replacing Calero. * Edema, RUE. Already therapeutic on warfarin. Remove PICC. * Possible neurogenic bowel and bladder. She will be treated with neurogenic bowel protocol. Schedule bisacodyl suppository for 1600 daily. * Hypotension, related to spinal cord injury. Improving, w/out hypotension, though droxidopa was not continued upon admission from acute hospital. Continue midodrine and fludrocortisone; increased midodrine c from 5 to 10 mg three times daily starting 10/30/16 and administer first dose 30 min before arising in AM. Continue abdominal binder and thigh-high BING hose. If her mean arterial pressure drops below 65, the BING hose can be replaced with Garland wraps. * Shoulder pain: requests massage therapy and acupuncture, ordered. Add PRN tramadol 11/06/16. Chronic/stable conditions: * Paroxysmal atrial fibrillation. She is on warfarin. Her INR is stable at 2.2 today 10/30/16 and 2.44 on 11/02/16, 2.61 on 11/06/16. Continue current warfarin dosing. Repeat INR 11/13/16. * History of complete atrioventricular block, status post pacemaker placement. She will be monitored. * History of anxiety and depression. Continue fluoxetine. * Osteoporosis. She is on vitamin D supplementation. Vitamin D level wnl . * Wound care. Her incision appears to be closed likely with dissolvable subcuticular sutures, and possibly skin glue. She can shower. * History of pulmonary emboli. Continue warfarin and oxygen as needed. * Hypoxemia. Per her report, she did not use oxygen during the day prior to her hospitalization. She will have incentive spirometry and continue with monitoring of oxygenation. It is hoped that she can be liberated from oxygen at least during the day during her stay. * Prophylaxis warfarin will be adequate for deep venous thrombosis prophylaxis. She is at high risk with her paraparesis. There is no indication for gastrointestinal prophylaxis. Lives with in [facility], 1 [facility]IL[facility] from [facility]. Has a local son; dtr out of state. Expect 8 weeks LOS with discharge 12/29/16. 11/13/16 14:24 Subjective: No fevers or chills overnight. Does not have the sensation of full bladder. Objective: Vital Signs Temp Pulse Resp BP Pulse Ox 36.9 C 60 14 104/59 L 92 11/13/16 06:01 11/13/16 07:48 11/13/16 06:01 11/13/16 07:48 11/13/16 07:48 Laboratory Results 11/12/16 17:10 11/12/16 17:10 11/12/16 11/13/16 11/14/16 05:59 05:59 05:59 Intake Total 1260 1490 Output Total 1450 2149 Balance -190 -659 PT 30.3 SEC (12.0-15.0) H 11/13/16 06:45 INR 2.85 (0.83-1.16) H 11/13/16 06:45 Physical Exam - Physical Exam General Appearance: WD/WN, alert, no apparent distress Respiratory: normal breath sounds, crackles (bibasilar), No rhonchi, No wheezing Cardiac/Chest: regular rate, rhythm, No edema Skin: normal color, warm/dry Neuro/Psych: alert, normal mood/affect, oriented x 3, motor weakness ICD10 Worksheet Patient Problems: Problems Problem Status Onset Cervical cord compression with myelopathy Acute S/P laminectomy Acute
[2016-11-13] MEDS: BETHANECHOL 10 MG TAB PO SCH ×3 (11:13→22:41)
[2016-11-13 11:47] LABS: HEMATOCRIT 32.9 % (38.0-47.0)
[2016-11-13 11:54] LABS: MEAN PLATELET VOLUME 10.7 fL (8.7-11.7)
[2016-11-13 11:55] LABS: % IMMATURE GRANULYOCYTES 1.2 % (0.0-1.1); ABSOLUTE IMMATURE GRANULOCYTES 0.14 10^3/uL (0.00-0.10); ADD DIFF? NO; NRBC-AUTO% 0.2 % (0.0-0.2)
[2016-11-13 11:56] LABS: ABSOLUTE NRBC COUNT 0.02 10^3/uL (0-0.01); ADD MORPH? NO; ADD SCAN? NO
[2016-11-13 11:59] LABS: ATYPICAL LYMPHOCYTE FLAG 0 (0-99); LEFT SHIFT FLG 10 (0-99)
[2016-11-13 12:00] LABS: FRAGMENT RBC FLAG 0 (0-99)
[2016-11-13] MEDS: WARFARIN SODIUM 2.5 MG TAB PO SCH (16:19)
[2016-11-13] MEDS: BISACODYL 10 MG SUPP PR SCH (16:41)
[2016-11-13] MEDS: CLOTRIMAZOLE 1% 45 GM VAG CREAM VG SCH (22:50)
[2016-11-13] MEDS: PATCH REMOVAL 1 EA PATCH TD SCH (23:42)
[2016-11-14] MEDS: GABAPENTIN 400 MG CAP PO SCH ×3 (05:44→20:54)
[2016-11-14] MEDS: BETHANECHOL 10 MG TAB PO SCH ×4 (05:44→20:54)
[2016-11-14] MEDS: ACETAMINOPHEN 500 MG TAB PO SCH ×3 (05:44→20:54)
[2016-11-14 07:06] LABS: INR 2.99 (0.83-1.16); PROTIME(PATIENT) 31.5 SEC (12.0-15.0)
[2016-11-14] MEDS: MIDODRINE HCL 5 MG TAB PO SCH ×3 (07:38→16:40)
[2016-11-14] MEDS: FLUoxetine 20 MG CAP PO SCH (08:35)
[2016-11-14] MEDS: CHOLECALCIFEROL VIT D3 1,000 UNITS TAB PO SCH (08:35)
[2016-11-14] MEDS: LIDOCAINE 5% 1 EA PATCH TD SCH (08:35)
[2016-11-14] MEDS: CYANO/VITAMIN B12 1000 MCG TAB PO SCH (08:35)
[2016-11-14] MEDS: FLUDROCORTISONE ACETATE 0.1 MG TAB PO SCH (08:35)
[2016-11-14] MEDS: POLYETHYLENE GLYCOL 3350 17 GM PKT PO SCH (09:55)
[2016-11-14] MEDS: SENNOSIDES 1 TAB PO SCH ×2 (09:55→20:54)
--- NOTE | 2016-11-14 12:14 | SOAPPROG ---
SOAP Progress Note Assessment/Plan: Assessment: 76 o F with pre-existing cervical spine DJD , with post traumatic C6 SCI, RISHI class C. S/P emergent cervical laminectomy C5 to C6 and posterior fusion C5 - C7: * C6 Incomplete quadriplegia, RISHI class C: Initial FIM 55 on 10/30/16; decrease to 54 on 11/09/16 related to L shoulder pain and needing more assistance with upper-body activities. Has improved core and LE strength but not yet translating functionally. Continue PT & OT to optimize her mobility and activities of daily living. Dressing max A upper, total A lower body. Can eat with built-up utensils L hand; has tenodesis non linear editor R hand. Will likely need power wheelchair. * Status post C5-6 laminectomy and C5-C7 posterior fusion on 10/16/16. Cont hard cervical collar when out of bed. Can remove collar to shower. * L shoulder pain. XR wnl 11/09/16. Improved 11/11/16; MRI d/c'd. Continue tramadol PRN and gabapentin. Had AMS on oxycodone. * Pneumonia, RLL on CXR 11/12/16, with persistently elevated WBCs; studies ordered due to fever. Levofloxacin 750 mg QD X 7 days for nosocomial pneumonia. * UTI on 11/06/16. Cx with varma-sensitive E. coli. Nitrofurantoin changed to levofloxacin.. D/C'd Calero 11/12/16. * Neurogenic bladder with urinary retention. C/W C6 injury. Cont CIC QID and PRN. * Query Autonomic Dysreflexia: had an episode yesterday in the PT Gym characterized by sensation of heat and flushing without hypertension or JACOB. Cont to monitor. * Edema, RUE. Already therapeutic on warfarin. Remove PICC. * Neurogenic bowel: recommend daily bowel protocol. Schedule bisacodyl suppository for 1600 daily. * Hypotension, related to spinal cord injury. Improving, w/out hypotension, though droxidopa was not continued upon admission from acute hospital. Continue midodrine and fludrocortisone; increased midodrine c from 5 to 10 mg three times daily starting 10/30/16 and administer first dose 30 min before arising in AM. Continue abdominal binder and thigh-high BING hose. If her mean arterial pressure drops below 65, the BING hose can be replaced with Garlnad wraps. * Shoulder pain: requests massage therapy and acupuncture, ordered. Add PRN tramadol 11/06/16. Chronic/stable conditions: * Paroxysmal atrial fibrillation. She is on warfarin. Her INR is stable at 2.2 today 10/30/16 and 2.44 on 11/02/16, 2.61 on 11/06/16. Continue current warfarin dosing. Repeat INR 11/13/16. * History of complete atrioventricular block, status post pacemaker placement. She will be monitored. * History of anxiety and depression. Continue fluoxetine. * Osteoporosis. She is on vitamin D supplementation. Vitamin D level wnl . * Wound care. Her incision appears to be closed likely with dissolvable subcuticular sutures, and possibly skin glue. She can shower. * History of pulmonary emboli. Continue warfarin and oxygen as needed. * Hypoxemia. Per her report, she did not use oxygen during the day prior to her hospitalization. She will have incentive spirometry and continue with monitoring of oxygenation. It is hoped that she can be liberated from oxygen at least during the day during her stay. * Prophylaxis warfarin will be adequate for deep venous thrombosis prophylaxis. She is at high risk with her paraparesis. There is no indication for gastrointestinal prophylaxis. Lives with in [facility], 1 [facility] from [facility]. Has a local son; dtr out of state. Expect 8 weeks LOS with discharge 12/29/16. Cont current rehab treatemnt plan reviewed above. 11/14/16 12:04 Subjective: Discouraged, reports increased depression, decreased appetite last few days. Pain manageable Sleep fragmented No F/C/CP/SOB/N/V/D/C VSS, BP 94/45 Objective: Vital Signs Temp Pulse Resp BP Pulse Ox 36.8 C 60 16 94/45 L 94 11/14/16 08:00 11/14/16 08:00 11/14/16 08:00 11/14/16 08:00 11/14/16 08:00 Laboratory Results 11/12/16 17:10 11/12/16 17:10 11/13/16 11/14/16 11/15/16 05:59 05:59 05:59 Intake Total 1490 1250 620 Output Total 8979 1950 800 Balance -659 -700 -180 PT 31.5 SEC (12.0-15.0) H 11/14/16 06:00 INR 2.99 (0.83-1.16) H 11/14/16 06:00 Physical Exam - Physical Exam General Appearance: alert, no apparent distress Neck: limited range of motion (Hard C-collar), No supple Respiratory: lungs clear Cardiac/Chest: regular rate, rhythm Abdomen: normal bowel sounds, soft Skin: normal color, warm/dry Extremities: No pedal edema, No calf tenderness Neuro/Psych: alert, normal mood/affect, oriented x 3, abnormal gait, motor weakness, sensory deficit (has retained sensation of bowel and bladder evacuation), other (no acute changes), No cognition abnormalities ICD10 Worksheet Patient Problems: Problems Problem Status Onset Cervical cord compression with myelopathy Acute S/P laminectomy Acute
[2016-11-14] MEDS: WARFARIN SODIUM 5 MG TAB PO SCH (16:40)
[2016-11-14] MEDS: BISACODYL 10 MG SUPP PR SCH (16:41)
[2016-11-14] MEDS: CLOTRIMAZOLE 1% 45 GM VAG CREAM VG SCH (22:00)
[2016-11-15] MEDS: ACETAMINOPHEN 500 MG TAB PO SCH ×3 (06:04→21:22)
[2016-11-15] MEDS: GABAPENTIN 400 MG CAP PO SCH ×3 (06:05→21:19)
[2016-11-15] MEDS: BETHANECHOL 10 MG TAB PO SCH ×4 (06:05→21:19)
[2016-11-15] MEDS: PATCH REMOVAL 1 EA PATCH TD SCH ×2 (06:42→21:23)
[2016-11-15] MEDS: FLUoxetine 20 MG CAP PO SCH (08:07)
[2016-11-15] MEDS: MIDODRINE HCL 5 MG TAB PO SCH ×3 (08:07→16:31)
[2016-11-15] MEDS: LIDOCAINE 5% 1 EA PATCH TD SCH (08:08)
[2016-11-15] MEDS: CYANO/VITAMIN B12 1000 MCG TAB PO SCH (08:08)
[2016-11-15] MEDS: FLUDROCORTISONE ACETATE 0.1 MG TAB PO SCH (08:08)
[2016-11-15] MEDS: SENNOSIDES 1 TAB PO SCH ×2 (08:09→21:20)
[2016-11-15] MEDS: POLYETHYLENE GLYCOL 3350 17 GM PKT PO SCH (08:09)
[2016-11-15] MEDS: CHOLECALCIFEROL VIT D3 1,000 UNITS TAB PO SCH (08:19)
--- NOTE | 2016-11-15 15:15 | SOAPPROG ---
SOAP Progress Note Assessment/Plan: Assessment: 76 o F with pre-existing cervical spine DJD , with post traumatic C6 SCI, RISHI class C. S/P emergent cervical laminectomy C5 to C6 and posterior fusion C5 - C7: * C6 Incomplete quadriplegia, RISHI class C: Initial FIM 55 on 10/30/16; decrease to 54 on 11/09/16 related to L shoulder pain and needing more assistance with upper-body activities. Has improved core and LE strength but not yet translating functionally. Continue PT & OT to optimize her mobility and activities of daily living. Dressing max A upper, total A lower body. Can eat with built-up utensils L hand; has tenodesis manager business operations R hand. Will likely need power wheelchair. * Status post C5-6 laminectomy and C5-C7 posterior fusion on 10/16/16. Cont hard cervical collar when out of bed. Can remove collar to shower. * L shoulder pain. XR wnl 11/09/16. Improved 11/11/16; MRI d/c'd. Continue tramadol PRN and gabapentin. Had AMS on oxycodone. * Pneumonia, RLL on CXR 11/12/16, Cont Levofloxacin 750 mg QD X 7 days for nosocomial pneumonia. * UTI on 11/06/16. Cx with varma-sensitive E. coli. Nitrofurantoin changed to levofloxacin.. D/C'd Calero 11/12/16. * Neurogenic bladder with urinary retention. C/W C6 injury. Cont CIC QID and PRN. * Query Autonomic Dysreflexia: had an episode 11/15 in the PT Gym characterized by sensation of heat and flushing without hypertension or JACOB. Cont to monitor. * Edema, RUE. Already therapeutic on warfarin. Remove PICC. * Neurogenic bowel: Cont daily bowel protocol with schedule bisacodyl suppository 1600 daily. * Hypotension, related to spinal cord injury. Improving, w/out hypotension, though droxidopa was not continued upon admission from acute hospital. Continue midodrine and fludrocortisone; increased midodrine c from 5 to 10 mg three times daily starting 10/30/16 and administer first dose 30 min before arising in AM. Continue abdominal binder and thigh-high BING hose. If her mean arterial pressure drops below 65, the BING hose can be replaced with Garland wraps. * Shoulder pain: requests massage therapy and acupuncture, ordered. Add PRN tramadol 11/06/16. Chronic/stable conditions: * Paroxysmal atrial fibrillation. She is on warfarin. Her INR is stable at 2.2 today 10/30/16 and 2.44 on 11/02/16, 2.61 on 11/06/16. Continue current warfarin dosing. Repeat INR 11/13/16. * History of complete atrioventricular block, status post pacemaker placement. She will be monitored. * History of anxiety and depression. Continue fluoxetine. * Osteoporosis. She is on vitamin D supplementation. Vitamin D level wnl . * Wound care. Her incision appears to be closed likely with dissolvable subcuticular sutures, and possibly skin glue. She can shower. * History of pulmonary emboli. Continue warfarin and oxygen as needed. * Hypoxemia. Per her report, she did not use oxygen during the day prior to her hospitalization. She will have incentive spirometry and continue with monitoring of oxygenation. It is hoped that she can be liberated from oxygen at least during the day during her stay. * Prophylaxis warfarin will be adequate for deep venous thrombosis prophylaxis. She is at high risk with her paraparesis. There is no indication for gastrointestinal prophylaxis. [facility], [facility] from [facility]. Has a local son; dtr out of state. Expect 8 weeks LOS with discharge 12/29/16. Cont current rehab treatment plan reviewed above. 11/15/16 15:12 Subjective: Tired today Dreading PT Pain 3/10, "from neck strain" No F/C/CP/SOB/N/V/D Sleep sisruptive 2/2 necessary cares Objective: Vital Signs Temp Pulse Resp BP Pulse Ox 36.8 C 60 16 99/68 L 95 11/15/16 06:45 11/15/16 11:48 11/15/16 06:45 11/15/16 11:48 11/15/16 06:45 Laboratory Results 11/12/16 17:10 11/12/16 17:10 11/14/16 11/15/16 11/16/16 05:59 05:59 05:59 Intake Total 1250 870 480 Output Total 1950 2450 450 Balance -700 -1580 30 PT 31.5 SEC (12.0-15.0) H 11/14/16 06:00 INR 2.99 (0.83-1.16) H 11/14/16 06:00 Physical Exam - Physical Exam General Appearance: alert, no apparent distress Neck: limited range of motion (C-collar), other (C-collar fit adequate) Respiratory: lungs clear Cardiac/Chest: regular rate, rhythm Skin: normal color, warm/dry Extremities: No pedal edema, No calf tenderness Neuro/Psych: alert, oriented x 3, motor weakness, sensory deficit, other (no gross changes), No cognition abnormalities ICD10 Worksheet Patient Problems: Problems Problem Status Onset Cervical cord compression with myelopathy Acute S/P laminectomy Acute
[2016-11-15] MEDS: BISACODYL 10 MG SUPP PR SCH (16:25)
[2016-11-15] MEDS: WARFARIN SODIUM 5 MG TAB PO SCH (16:25)
[2016-11-15] MEDS: MELATONIN 3 MG TAB PO PRN (21:20)
[2016-11-15] MEDS: CLOTRIMAZOLE 1% 45 GM VAG CREAM VG SCH (22:58)
[2016-11-16] MEDS: ACETAMINOPHEN 500 MG TAB PO SCH ×3 (05:56→20:55)
[2016-11-16] MEDS: GABAPENTIN 400 MG CAP PO SCH ×3 (05:56→20:55)
[2016-11-16] MEDS: BETHANECHOL 10 MG TAB PO SCH ×4 (05:56→20:56)
[2016-11-16] MEDS: MIDODRINE HCL 5 MG TAB PO SCH ×3 (06:48→17:59)
[2016-11-16 08:09] LABS: INR 3.58 (0.83-1.16); PROTIME(PATIENT) 36.3 SEC (12.0-15.0)
[2016-11-16] MEDS: LIDOCAINE 5% 1 EA PATCH TD SCH (08:30)
[2016-11-16] MEDS: FLUoxetine 20 MG CAP PO SCH (08:32)
[2016-11-16] MEDS: FLUDROCORTISONE ACETATE 0.1 MG TAB PO SCH (08:34)
[2016-11-16] MEDS: CHOLECALCIFEROL VIT D3 1,000 UNITS TAB PO SCH (08:34)
[2016-11-16] MEDS: CYANO/VITAMIN B12 1000 MCG TAB PO SCH (08:34)
[2016-11-16] MEDS ORDERED: SENNOSIDES 1 TAB PO PRN (08:55)
[2016-11-16] MEDS ORDERED: POLYETHYLENE GLYCOL 3350 17 GM PKT PO PRN (08:57)
--- NOTE | 2016-11-16 10:00 | SOAPPROG ---
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 Initial FIM 55 on ; decrease to 54 on 11/09/16 related to L shoulder pain and needing more assistance with upper-body activities Decline to 53 as of 11/16/16. Has improved core and LE strength but not yet translating functionally. Continue PT & OT to optimize her mobility and activities of daily living. Dressing max A upper, total A lower body. Can eat with built-up utensils L hand; has tenodesis certified novell engineer R hand. Will likely need power wheelchair. * Status post C5-6 laminectomy and C5-C7 posterior fusion on 10/16/16. Hard cervical collar when out of bed. Can remove collar to shower. * L shoulder pain. XR wnl 11/09/16. Improved 11/11/16; MRI d/c'd. Not using tramadol PRN; continue gabapentin. Had AMS on oxycodone. * Pneumonia, RLL on CXR 11/12/16, with persistently elevated WBCs; studies ordered due to fever. Levofloxacin 750 mg QD X 7 days through 11/20/16 for nosocomial pneumonia. * UTI on 11/06/16. Cx with varma-sensitive E. coli. Nitrofurantoin changed to levofloxacin.. D/C'd Calero 11/12/16. * Urinary retention. Due to spinal cord shock? Would expect incontinence with C6 injury rather than retention. Trial of bethanechol. Removed Calero catheter in AM . Continue rehabilitation bladder protocol. She prefers intermittent catheterization over replacing Calero. * Possible neurogenic bowel and bladder. She will be treated with neurogenic bowel protocol. Schedule bisacodyl suppository for 1600 daily. * Hypotension, related to spinal cord injury. Improving, w/out hypotension, though droxidopa was not continued upon admission from acute hospital. Continue midodrine and fludrocortisone; increased midodrine c from 5 to 10 mg three times daily starting 10/30/16 and administer first dose 30 min before arising in AM. Continue abdominal binder and thigh-high BING hose. If her mean arterial pressure drops below 65, the BING hose can be replaced with Garland wraps. * Shoulder pain: requests massage therapy and acupuncture, ordered. Add PRN tramadol 11/06/16. Chronic/stable conditions: * Paroxysmal atrial fibrillation. She is on warfarin. Her INR is stable at 2.2 today 10/30/16 and 2.44 on 11/02/16, 2.61 on 11/06/16. Continue current warfarin dosing. Repeat INR 11/13/16. * History of complete atrioventricular block, status post pacemaker placement. She will be monitored. * History of anxiety and depression. Continue fluoxetine. * Osteoporosis. She is on vitamin D supplementation. Vitamin D level wnl . * Wound care. Her incision appears to be closed likely with dissolvable subcuticular sutures, and possibly skin glue. She can shower. * History of pulmonary emboli. Continue warfarin and oxygen as needed. * Hypoxemia. Per her report, she did not use oxygen during the day prior to her hospitalization. She will have incentive spirometry and continue with monitoring of oxygenation. It is hoped that she can be liberated from oxygen at least during the day during her stay. * Prophylaxis warfarin will be adequate for deep venous thrombosis prophylaxis. She is at high risk with her paraparesis. There is no indication for gastrointestinal prophylaxis. Attended staffing, 15 min. D/W [facility], [facility], nursing, PT, OT, pharmacy. Minimal progress; plan to transfer to lower level of care specialty SNF; return to [facility] when she's more capable of making progress. Lives [place] in [place], 1 [facility] from [facility]. Has a local son; dtr out of state. Discharge when bed is available at [facility] in [place]. 11/16/16 11:35 Subjective: No complaints. Unable to void. Has some improved use of hands. Tolerates seated upright for minutes. Objective: Vital Signs Temp Pulse Resp BP Pulse Ox 36.9 C 60 15 87/43 L 92 11/16/16 08:00 11/16/16 08:00 11/16/16 08:00 11/16/16 08:00 11/16/16 08:00 Laboratory Results 11/12/16 17:10 11/12/16 17:10 11/15/16 11/16/16 11/17/16 05:59 05:59 05:59 Intake Total 870 1430 250 Output Total 2450 1999 Balance -1580 -570 250 PT 36.3 SEC (12.0-15.0) H 11/16/16 06:35 INR 3.58 (0.83-1.16) H 11/16/16 06:35 - Time Spent With Patient Time Spent With Patient: Greater than 35 minutes floor time today, including more than 50% of time in coordination of care during staffing meeting, and counseling patient. Physical Exam - Physical Exam General Appearance: WD/WN, alert, no apparent distress Respiratory: normal breath sounds, crackles (few bibailar R > L), No rhonchi, No wheezing Cardiac/Chest: regular rate, rhythm, No edema Skin: normal color, warm/dry Neuro/Psych: alert, normal mood/affect, oriented x 3, motor weakness ICD10 Worksheet Patient Problems: Problems Problem Status Onset Cervical cord compression with myelopathy Acute S/P laminectomy Acute
[2016-11-16] MEDS: BISACODYL 10 MG SUPP PR SCH (15:06)
[2016-11-16] MEDS: MELATONIN 3 MG TAB PO PRN (20:55)
[2016-11-17] MEDS: CLOTRIMAZOLE 1% 45 GM VAG CREAM VG SCH (00:16)
[2016-11-17] MEDS: ACETAMINOPHEN 500 MG TAB PO SCH ×2 (06:22→14:05)
[2016-11-17] MEDS: BETHANECHOL 10 MG TAB PO SCH (06:22)
[2016-11-17] MEDS: MIDODRINE HCL 5 MG TAB PO SCH ×3 (06:23→15:55)
[2016-11-17] MEDS: GABAPENTIN 400 MG CAP PO SCH ×2 (06:23→14:06)
[2016-11-17] MEDS: PATCH REMOVAL 1 EA PATCH TD SCH (07:01)
[2016-11-17 07:46] VITALS: RESP 18; TEMP 98.2; O2SAT 93
[2016-11-17 07:51] LABS: % IMMATURE GRANULYOCYTES 0.7 % (0.0-1.1); ABSOLUTE IMMATURE GRANULOCYTES 0.04 10^3/uL (0.00-0.10); ADD DIFF? NO; ADD MORPH? NO; ADD SCAN? NO; ATYPICAL LYMPHOCYTE FLAG 0 (0-99); FRAGMENT RBC FLAG 0 (0-99); HEMATOCRIT 34.6 % (38.0-47.0); HEMOGLOBIN 11.1 g/dL (12.6-16.3); LEFT SHIFT FLG 0 (0-99); LIPEMIA HEMOLYSIS FLAG 80 (0-99); MEAN CELL HEMOGLOBIN 31.3 pg (27.9-34.1); MEAN CELL HEMOGLOBIN CONCENTR. 32.1 g/dL (32.4-36.7); MEAN CELL VOLUME 97.5 fL (81.5-99.8); MEAN PLATELET VOLUME 9.1 fL (8.7-11.7); PLATELET CLUMPS FLAG 0 (0-99); PLATELET COUNT 353 10^3/uL (150-400); RED BLOOD CELL COUNT 3.55 10^6/uL (4.18-5.33)
[2016-11-17] MEDS: FLUDROCORTISONE ACETATE 0.1 MG TAB PO SCH (08:24)
[2016-11-17] MEDS: CHOLECALCIFEROL VIT D3 1,000 UNITS TAB PO SCH (08:24)
[2016-11-17] MEDS: FLUoxetine 20 MG CAP PO SCH (08:24)
[2016-11-17] MEDS: CYANO/VITAMIN B12 1000 MCG TAB PO SCH (08:24)
[2016-11-17] MEDS: LIDOCAINE 5% 1 EA PATCH TD SCH (08:25)
[2016-11-17 08:27] LABS: INR 3.67 (0.83-1.16); PROTIME(PATIENT) 37.1 SEC (12.0-15.0)
--- NOTE | 2016-11-17 10:45 | PDDCSUM ---
Discharge Summary Discharge Summary: Discharge Summary/Transfer Note/Off-Service Note Date of Admission/Transfer: 10/29/2016 Date of Discharge/Transfer: 11/17/2016, anticipated Admitting Diagnosis: cervical spinal cord injury Discharge Diagnosis: same Secondary Diagnoses: impairments in mobility, self-care, neurogenic bowel, neurogenic bladder, neurogenic skin, bilateral shoulder pain, right lower lobe pneumonia on 11/12/2016, urinary tract infection, hypotension secondary to spinal cord injury, paroxysmal atrial fibrillation, anticoagulation on warfarin, history of complete atrioventricular block status post pacemaker placement, anxiety, depression, osteoporosis, surgical wound, history of pulmonary emboli, hypoxemia. Procedures: x-ray of the chest two views on November 12, 2016 for fever, pulmonary crackles showed suspected right lower lobe pneumonia. X-ray of the shoulder on for acute pain of the left shoulder showed possible chronic bicep tendinopathy otherwise negative for fractures or dislocation. Chest x-ray on 11/09 showed possible cardiomegaly, small bilateral pleural effusions without obvious pneumonia. Consultations: physical therapy, occupational therapy, speech lingers pathology , social work, dietitian, massage History of Present Illness: please see admission history and physical dated 10/29 for full details. Briefly, this is a 76-year-old female with a history of pre-existing cervical spine degenerative disc disease who presented with a cervical spinal cord injury after fall on 10/16/2016, underwent emergent cervical laminectomy of C5 to C6 and posterior fusion C-5 through C7, and a clinical presentation of incomplete tetraplegia, C6, RISHI class C. Patient was transferred from [facility], and was operated on by Dr. Humphrey, neurosurgery. Her acute hospital course was complicated by significant hypotension requiring pressers and multiple pharmacological interventions. She had premorbid paroxysmal atrial fibrillation and was on warfarin. Hospital Course: Mrs. Mccord made limited functional gains on inpatient rehabilitation and had greatly improved symptomatic hypertension but did have medical complications including pneumonia and urinary tract infection. Ultimately, she is discharging to [facility] facility with a goal to ultimately readmit to inpatient rehabilitation when endurance improves. On discharge, she is still requiring maximum assistance for upper body dressing and total assistance for lower body. She can eat with modified utensils in the left hand and has a tenodesis application chemist. She requires a power wheelchair for mobility , fully for bladder management, and a Pinon program daily for neurogenic bowel. She also requires Q2 our returns for neurogenic skin. She remains neurologically stable and made some improvements in strength. Her course was complicated by bilateral shoulder pain, worse on the left, that had normal x-rays. She had improvement with work with physical therapy including shoulder depression and protraction. Considered getting an MRI, but she was having improvements in her pain and this was put off until after discharge. On discharge she has much improved pain and is doing some taping of the shoulder. She also had pneumonia in the right lower lobe diagnosed on chest x-ray on 2016 with elevated white blood cells. She is on levofloxacin 750 mg daily for seven day course ending 11/20/2016 for nosocomial pneumonia. Additionally, she had a urinary tract infection on 11/06/2016 with the culture positive for varma sensitive Escherichia coli. Nitrofurantoin was started and changed to levofloxacin. Neurogenic bladder should be managed with a Calero catheter, she had a voiding trial with urinary retention, a period of ICP, but Calero was eventually replaced because she has poor hand function and would be unable to do ICP independently. Recommend keeping the Calero catheter for now. May try a voiding trial in the future with close monitoring of post void residuals. Neurogenic bowel should be managed with a daily suppository indefinitely. She has significant hypotension related to the spinal cord injury, should continue on midodrine and fludricortisone, as well as abdominal binders and thigh-high compression stockings to try to maximize blood pressure in the head when she is upright. She is also discharged with hypoxemia, not present prior. She should have her INR followed daily until stable between 2 to 3, and it was elevated on 11/17 at 3.67, up from 3.58 on 11/16/2016, up from 2.99 on 11/14/2016, up from 2.85 on 11/13/2016. Warfarin was held on 11/16/2016 and dose was decreased. Condition: On discharge, she is still requiring maximum assistance for upper body dressing and total assistance for lower body. She can eat with modified utensils in the left hand and has a tenodesis application chemist. She requires a power wheelchair for mobility, fully for bladder management, and a Pinon program daily for neurogenic bowel. She also requires Q2 our returns for neurogenic skin. She requires significant assistance for ADLs and IADLs. She also requires oxygen for hypoxemia Exam on discharge: vital signs were temperature 36.8 Celsius, blood pressure 154/82, heart rate 61 , respiratory 18, O2 sats 93% on 2 L nasal cannula. Blood pressure was after midodrine was administered. In general she's in no apparent distress lying in bed, has a cervical collar in place. Eyes were anicteric. She had normal dentition, moist mucous membranes. Her heart was regular rate and rhythm, no lower extremity edema, extremities were warm though she noted that they felt cool. She was breathing comfortably on room air, lungs were clear to auscultation bilaterally, no wheezes ronchi or rales. Abdomen had a abdominal binder in place. She had a Calero in place, draining clear yellow urine. Musculoskeletal, she had some tenderness about the shoulders, she had taping in place. Skin shows no rashes or skin breakdown. She was appropriate, pleasant, and cooperative. She endorsed a normal mood. Heme, lymph, she had some mild bruising, no bleeding. Neurologically, she was alert and oriented times three, cranial nerves two through 12 are intact and symmetric bilaterally including no diplopia. Strength was 4/5 in the bilateral biceps and triceps, as well as the bilateral wrist extensors, slightly stronger on the left than on the right. She had a tenodesis application chemist in the bilateral finger flexors, otherwise it was trace. She had absent finger abduction. Hip flexors were trace bilaterally, knee extension was 4/5 bilaterally, ankle dorsiflexion and EHL was 4/5 bilaterally, ankle plantar flexion was 4/5 on the right, 3/5 in the left. She had trace spasticity. Disposition: discharge to [facility] facility until able to tolerate inpatient rehabilitation with the goal to discharge home. Discharge Medications: Clotrimazole 1% vaginal cream QHS gabapentin 800 mg PO Q8 hours levofloxacin 750 mg PO daily, discontinue 11/20/2016 lidocaine 5% patch one each daily melatonin 3 mg PO Q HS PRN Preparation H cream one application per rectum b.i.d. PRN warfarin sodium 5 mg PO daily T warfarin sodium 2.5 mg PO daily other days midodrine 5 mg PO TID fludrocortisone 0.1 mg PO daily acetaminophen 650 mg PO Q6 hours PRN pain fluoxetine 20 mg PO daily cyanocobalamin 1000 g PO daily cholecalciferol 1000 units PO daily Discharge Instructions: she requires assistance with ADLs and IADLs, and should continue with physical therapy and occupational therapy. She is tolerating a regular diet, thin liquids. She should continue with the cervical collar until she follows up with Dr. Humphrey. Additionally, she should be followed by case management to consider a secondary inpatient rehabilitation admission. Pending Studies: None Recommendations: HOLD warfarin again on 11/17. She should have her INR followed daily until stable between 2 to 3, and it was elevated on discharge at 3.67, up from 3.58 on 11/16/2016, up from 2.99 on 11/14/2016, up from 2.85 on 11/13/2016. Warfarin was held on 11/16/2016 and dose was decreased. Monitor closely after cessation of Levofloxacin. Follow-up: Dr. Humphrey, neurosurgery. Primary care physician if discharged from [facility] facility to home. A total of 65 minutes was spent on the floor in the care of the patient, the majority of which was spent in the counseling and coordination of care regarding neurogenic bladder, and discharge planning.
--- NOTE | 2016-11-17 10:54 | PDOREHIP ---
Admission [facility] - Admission - 3 Day Assessment Period Admission Date/Day 1: 10/29/16 Day 2: 10/30/16 Day 3: 10/31/16 Discharge [facility] - Discharge - 3 Day Assessment Period 2 Days Prior to Anticipated Discharge Date: 12/27/16 1 Day Prior to Anticipated Discharge Date: 12/28/16 Anticipated Discharge Date: 12/29/16 - Discharge Skin Conditions Unhealed Pressure Ulcer (1 or more/Stage 1 or >)-Discharge: 0. No
[2016-11-17 11:35] VITALS: PULSE 59
[2016-11-17] MEDS: BISACODYL 10 MG SUPP PR SCH (15:55)
[2016-11-17] MEDS ORDERED: WARFARIN SODIUM 2.5 MG TAB PO SCH (16:00)
[2016-11-17] MEDS ORDERED: WARFARIN SODIUM 5 MG TAB PO SCH (16:00)
[2016-11-17] MEDS ORDERED: WARFARIN SODIUM 1 MG TAB PO SCH (16:00)
[2016-11-17 16:02] VITALS: BP 115/60
[2016-11-18] MEDS ORDERED: WARFARIN SODIUM 2.5 MG TAB PO SCH (16:00)
[2016-11-18] MEDS ORDERED: WARFARIN SODIUM 5 MG TAB PO SCH (16:00)
== END 2016-11-17 18:29 | DRG 52 ==
LOC: BREH 10-29 14:38
PROVIDERS: ADMIT Internal Medicine; ATTEND Internal Medicine
DX: G82.54 Quadriplegia, C5-C7 incomplete (principal); M50.022 Cervical disc disorder at C5-C6 level with myelopathy; N31.9 Neuromuscular dysfunction of bladder, unspecified; K59.2 Neurogenic bowel, not elsewhere classified; R09.02 Hypoxemia; I48.0 Paroxysmal atrial fibrillation; M75.42 Impingement syndrome of left shoulder; J18.9 Pneumonia, unspecified organism; N39.0 Urinary tract infection, site not specified; M81.0 Age-related osteoporosis without current pathological fracture; Z98.1 Arthrodesis status; Z95.0 Presence of cardiac pacemaker; Z79.01 Long term (current) use of anticoagulants
CPT/HCPCS: 92507-GN; 92522-GN; 92526-GN; 92610-GN; 97110-GO; 97110-GP; 97112-GP; 97140-GO; 97163-GP; 97167-GO; 97530-GO; 97530-GP; 97535-GO; 97542-GP; J2997

== ENCOUNTER → 2017-02-11 | Outpatient (CLI) | payer OTHER | LOC: FLAB 09:28 | PROVIDERS: ATTEND Physician Assistant | DX: Z98.1 Arthrodesis status (principal) ==

== ENCOUNTER → 2017-07-08 | Outpatient (CLI) | payer OTHER | LOC: FIMAGING 14:03 | PROVIDERS: ATTEND Physician Assistant | DX: Z09 Encounter for follow-up examination after completed treatment for conditions other than malignant neoplasm (principal); Z98.1 Arthrodesis status ==